=== PATIENT | male | born 1940 | race Caucasian/White ===

== ENCOUNTER → 2016-09-28 | Outpatient (REF) | payer MEDICARE ==
[~2016-09-28] MED LIST: ALDA25TA2; ASPI81TA85 PO; ATEN25TA PO; ATEN50TA2; CALCCHW12; CALCIUM 600+D PO; CALCPOW2 PO; COUM1TAB; DIGO0.12 PO; DIGO0.126; FLEXERIL; FLEXERIL PO; FURO40TA2 PO; KEFL500C7 PO; LASI40TA; LASI40TA PO; LIDO1PAD TD; LISI10TA4 PO; LOVA10TA; LOVA10TA PO; METF500T PO; MULTCAP PO; OXYC1TAB23 PO; PEPC10CH PO; PERC5TAB8; PREG50CA PO; PRIN10TA; SERT50TA PO; THERGRAN; VITA500T; VITAMIN B12 PO; ZOLO50TA
== END ==
LOC: M SFHCCAPE 10:25
PROVIDERS: ATTEND Physician Assistant
DX: E11.8 Type 2 diabetes mellitus with unspecified complications (principal); I10 Essential (primary) hypertension

== ENCOUNTER → 2016-10-05 | Outpatient (REF) | payer MEDICARE ==
[2016-10-05 17:41] LABS: ALBUMIN 3.3 GM/DL (3.2-5.2); ALBUMIN/GLOBULIN RATIO 0.94 (1.00-1.93); BILIRUBIN,TOTAL 0.5 MG/DL (0.2-1.0); CALCIUM LEVEL 8.8 MG/DL (8.8-10.2); CREATININE FOR GFR 1.5 MG/DL (0.70-1.30); GLOMERULAR FILTRATION RATE 48.4 (>42); POTASSIUM SERUM 4.7 MEQ/L (3.5-5.1); TOTAL PROTEIN 6.8 GM/DL (6.4-8.2)
== END ==
LOC: M SFHCCAPE 09:32
PROVIDERS: ATTEND Physician Assistant
DX: E87.5 Hyperkalemia (principal)

== ENCOUNTER 2016-11-07 10:03 | Emergency (ER) | payer MEDICARE ==
[~2016-11-07] VITALS: Ht 167.6 cm; Wt 76.2 kg
[2016-11-07] MEDS ORDERED: LEVE1INJ5 SQ (10:20)
[2016-11-07] MEDS ORDERED: GABA-283 PO (10:20)
[2016-11-07] MEDS ORDERED: ACETAMINOPHEN TAB 650MG DOSE (2X325MG) PO ONE (11:45)
--- NOTE | 2016-11-07 12:35 | ED PDOC ---
Post-Departure Follow-Up AFTER ALL RADIOLOGY RESULTS WERE OBTAINED, SPOKE AT LENGTH WITH PT, AND GRANDDAUGHTER REGARDING DISCHARGE VS ADMISSION. ADVISED EVEN IF ALL STUDIES WERE NEGATIVE, COULD TRY TO ADMIT FOR DIFFICULTY AMBULATING AND HIP PAIN BUT MAY BE SOCIAL ADMIT. FAMILY ASSURED PT DOES NOT AMBULATE MUCH AT HOME, ONLY TO TRANSFER TO WHEEL CHAIR AND BACK. ADVISED WILL LOOK AFTER PT AND RETURN IF ANY WORSENING SYMPTOMS OR ANOTHER FALL. PT SEES DR. Ware FOR CHRONIC RIGHT HIP WOUND AND ADVISED TO CALL THAT OFFICE WEDNESDAY TO SCHEDULE F/U APPT. FAMILY AND PT ALL IN AGREEMENT OF TX PLAN AT THIS TIME. FRANCISCA HERNANDEZ PA-C Nov 07, 2016 12:35
[2016-11-07 12:37] VITALS: BP 146/78
--- NOTE | 2016-11-07 15:11 | REP ---
RIGHT HIP/PELVIS, THREE VIEWS: HISTORY: Pain. The patient is status post right total hip replacement. There is no acute fracture or dislocation. A lucent defect is present in the iliac bone and acetabulum. This appears unchanged from a prior CT pelvis. IMPRESSION: The patient is status post right total hip replacement. There is no acute fracture or dislocation. Signed by Tan Madsen MD 11/07/2016 02:36 P
--- NOTE | 2016-11-07 15:11 | REP ---
RIGHT FEMUR, TWO VIEWS: HISTORY: Hip pain. The proximal femur is not visualized in the present radiographs. There is no acute fracture or dislocation. The joint space is normal in appearance. IMPRESSION: There is no acute fracture or dislocation. Signed by Tan Madsen MD 11/07/2016 03:03 P
--- NOTE | 2016-11-07 15:11 | REP ---
CT PELVIS WITHOUT CONTRAST: HISTORY: Right hip pain. The urinary bladder is normal in appearance. The prostate gland is enlarged. Diverticula are present in the sigmoid colon. The patient is status post right total hip replacement. Extensive beam-hardening artifact is present. There is no definite fracture or dislocation. A lucent defect is present in the left iliac bone including the acetabulum. This appears changed compared to a previous CT examination. Degenerative change is present in the left hip. Degenerative change is present in the lumbar spine. There is grade 1 spondylolisthesis of L4 on L5. IMPRESSION: Limited examination demonstrating no definite fracture or dislocation. The patient is status post right total hip replacement. Signed by Tan Madsen MD 11/07/2016 03:03 P
== END 2016-11-07 12:39 | disposition home or self-care (01) ==
LOC: M ED 10:38
DX: M25.551 Pain in right hip (principal); W05.0XXA Fall from non-moving wheelchair, initial encounter; Y92.012 Bathroom of single-family (private) house as the place of occurrence of the external cause; Y93.89 Activity, other specified; Y99.8 Other external cause status; E11.9 Type 2 diabetes mellitus without complications; I25.2 Old myocardial infarction; G89.29 Other chronic pain; F32.9 Major depressive disorder, single episode, unspecified; M48.00 Spinal stenosis, site unspecified; Z95.0 Presence of cardiac pacemaker; Z96.641 Presence of right artificial hip joint; Z79.4 Long term (current) use of insulin; Z79.82 Long term (current) use of aspirin; Z79.899 Other long term (current) drug therapy; Z88.6 Allergy status to analgesic agent; Z88.8 Allergy status to other drugs, medicaments and biological substances; Z91.09 Other allergy status, other than to drugs and biological substances

== ENCOUNTER 2017-02-10 16:00 | Emergency (ER) | payer MEDICARE ==
[~2017-02-10] VITALS: Ht 165.1 cm; Wt 75.0 kg
[~2017-02-10 16:00] MED LIST changes: +GABA-283 PO; +KEFL500C17 PO; -KEFL500C7 PO; +LEVE1INJ5 SQ; -METF500T PO; +METF500T13 PO
[2017-02-10 17:28] LABS: BASO # 0.1 K/mm3 (0.0-0.2); BASO % 0.7 % (0.0-1.0); EOS # 0.4 K/mm3 (0.0-0.50); EOS % 2.7 % (0.0-3.0); LARGE UNSTAINED CELL # 0.2 K/mm3 (0.0-0.4); LARGE UNSTAINED CELL % 1.6 % (0.0-4.0); LYMPH # 2.8 K/mm3 (1.5-4.5); LYMPH % 19.1 % (24.0-44.0); MEAN CORPUSCULAR HEMOGLOBIN 30.4 pg (27.0-33.0); MEAN CORPUSCULAR HGB CONC 33.7 g/dl (32.0-36.5); MEAN CORPUSCULAR VOLUME 90.3 fl (80.0-96.0); MONO # 1.1 K/mm3 (0.0-0.8); MONO % 7.9 % (0.0-5.0); NEUTROPHILS # 9.4 K/mm3 (1.8-7.7); NEUTROPHILS % 68.1 % (36.0-66.0); PLATELET COUNT, AUTOMATED 333 k/mm3 (150-450); RED CELL DISTRIBUTION WIDTH 13.7 % (11.5-14.5); WHITE BLOOD COUNT 13.8 K/mm3 (4.0-10.0)
[2017-02-10 17:59] LABS: CALCIUM LEVEL 8.7 MG/DL (8.8-10.2); CREATININE FOR GFR 1.49 MG/DL (0.70-1.30); GLOMERULAR FILTRATION RATE 48.8 (>42); POTASSIUM SERUM 4.8 MEQ/L (3.5-5.1)
--- NOTE | 2017-02-10 18:06 | REP ---
Right hip two views: Comparison is 11/07/2016. There is a comparison CT of the pelvis dated 11/07/2016. There is a total hip arthroplasty with the components tightly applied and in satisfactory positions alignment. There is lucency in the acetabulum adjacent to the acetabular cup extending into the supra-acetabular iliac wing, similar to the comparison study. This could be a large cyst or lytic lesion or postsurgical change . However, the findings are unchanged compared to a prior CT of 04/24/2008. Signed by Davi Mckee MD 02/10/2017 05:58 P
[2017-02-10 18:27] VITALS: BP 133/68
== END 2017-02-10 18:30 | disposition home or self-care (01) ==
LOC: M ED 16:00
DX: S71.101A Unspecified open wound, right thigh, initial encounter (principal); X58.XXXA Exposure to other specified factors, initial encounter; Y92.9 Unspecified place or not applicable; Y93.9 Activity, unspecified; Y99.8 Other external cause status; E11.22 Type 2 diabetes mellitus with diabetic chronic kidney disease; I12.9 Hypertensive chronic kidney disease with stage 1 through stage 4 chronic kidney disease, or unspecified chronic kidney disease; I25.10 Atherosclerotic heart disease of native coronary artery without angina pectoris; I25.2 Old myocardial infarction; N28.9 Disorder of kidney and ureter, unspecified; M48.00 Spinal stenosis, site unspecified; Z95.0 Presence of cardiac pacemaker; Z79.4 Long term (current) use of insulin; Z79.82 Long term (current) use of aspirin; Z79.899 Other long term (current) drug therapy; Z88.6 Allergy status to analgesic agent; Z88.8 Allergy status to other drugs, medicaments and biological substances; Z91.018 Allergy to other foods; Z91.09 Other allergy status, other than to drugs and biological substances

== ENCOUNTER → 2017-02-15 | Outpatient (REF) | payer MEDICARE ==
[~2017-02-15] MED LIST changes: +ASPI81TAEC PO; +CALCTAB68 PO; +CYCL10TA PO; +DOXY100T2 PO; +GABA-282 PO; +SERT-138 PO
[2017-02-15 19:34] LABS: BASO # 0.1 K/mm3 (0.0-0.2); BASO % 0.6 % (0.0-1.0); EOS # 0.2 K/mm3 (0.0-0.50); LARGE UNSTAINED CELL # 0.1 K/mm3 (0.0-0.4); LARGE UNSTAINED CELL % 0.7 % (0.0-4.0); LYMPH # 1.9 K/mm3 (1.5-4.5); LYMPH % 15.4 % (24.0-44.0); MEAN CORPUSCULAR HEMOGLOBIN 30.2 pg (27.0-33.0); MEAN CORPUSCULAR HGB CONC 32.4 g/dl (32.0-36.5); MEAN CORPUSCULAR VOLUME 93.3 fl (80.0-96.0); MONO # 0.9 K/mm3 (0.0-0.8); MONO % 7.4 % (0.0-5.0); NEUTROPHILS # 8.6 K/mm3 (1.8-7.7); NEUTROPHILS % 73.9 % (36.0-66.0); PLATELET COUNT, AUTOMATED 376 k/mm3 (150-450); RED CELL DISTRIBUTION WIDTH 13.7 % (11.5-14.5); WHITE BLOOD COUNT 11.6 K/mm3 (4.0-10.0)
[2017-02-15 21:39] LABS: ERYTHROCYTE SEDIMENTATION RATE 124 mm/hr (0-20)
== END ==
LOC: M LABDRAW1 17:38
PROVIDERS: ATTEND Physician Assistant
DX: Z47.1 Aftercare following joint replacement surgery (principal)

== ENCOUNTER → 2017-02-23 | Outpatient (REF) | payer MEDICARE | LOC: M SFHCPLAZ 13:13 | PROVIDERS: ATTEND Internal Medicine Infectious Disease | DX: T84.50XA Infection and inflammatory reaction due to unspecified internal joint prosthesis, initial encounter (principal); F32.9 Major depressive disorder, single episode, unspecified; G62.9 Polyneuropathy, unspecified; E11.65 Type 2 diabetes mellitus with hyperglycemia; Z79.82 Long term (current) use of aspirin; Z79.4 Long term (current) use of insulin; Z79.899 Other long term (current) drug therapy; Z95.0 Presence of cardiac pacemaker ==

== ENCOUNTER 2017-02-25 15:35 | Inpatient (IN) | payer MEDICARE ==
[~2017-02-25] VITALS: Ht 175.3 cm; Wt 77.3 kg
[~2017-02-25 15:35] MED LIST changes: -ASPI81TAEC PO; -CALCTAB68 PO; -CYCL10TA PO; -DOXY100T2 PO; -GABA-282 PO; -SERT-138 PO
[2017-02-25] MEDS ORDERED: VANCOMYCIN HCL 1,000 MG, VIAL MATE ADAPTER 1 EACH in D5W 250 ML IV ONE (17:30)
[2017-02-25] MEDS ORDERED: cefTRIAXone SOD 2 GM in D5W MINI-BAG PLUS 50 ML IV ONE (17:30)
[2017-02-25] MEDS ORDERED: ONDANSETRON 4MG/2ML VIAL (J2405) IV ONE (17:45)
[2017-02-25] MEDS ORDERED: MORPHINE 4 MG/ML 1ML SYRINGE IV ONE (17:45)
[2017-02-25 18:28] LABS: BASO # 0.1 K/mm3 (0.0-0.2); BASO % 0.5 % (0.0-1.0); EOS # 0.4 K/mm3 (0.0-0.50); EOS % 3.1 % (0.0-3.0); LARGE UNSTAINED CELL # 0.2 K/mm3 (0.0-0.4); LARGE UNSTAINED CELL % 1.2 % (0.0-4.0); LYMPH # 2.5 K/mm3 (1.5-4.5); LYMPH % 17.3 % (24.0-44.0); MEAN CORPUSCULAR HEMOGLOBIN 30.2 pg (27.0-33.0); MEAN CORPUSCULAR HGB CONC 33.1 g/dl (32.0-36.5); MEAN CORPUSCULAR VOLUME 91.2 fl (80.0-96.0); MONO # 0.8 K/mm3 (0.0-0.8); MONO % 6.1 % (0.0-5.0); NEUTROPHILS # 9.7 K/mm3 (1.8-7.7); NEUTROPHILS % 71.8 % (36.0-66.0); PLATELET COUNT, AUTOMATED 395 k/mm3 (150-450); RED CELL DISTRIBUTION WIDTH 13.3 % (11.5-14.5); WHITE BLOOD COUNT 13.6 K/mm3 (4.0-10.0)
[2017-02-25 18:54] LABS: CALCIUM LEVEL 8.2 MG/DL (8.8-10.2); CREATININE FOR GFR 1.39 MG/DL (0.70-1.30); DIGOXIN LEVEL 2.1 NG/ML (0.5-2.0); GLOMERULAR FILTRATION RATE 52.9 (>42)
[2017-02-25 19:02] LABS: POTASSIUM SERUM 5.3 MEQ/L (3.5-5.1)
[2017-02-25] MEDS ORDERED: ASPI81TAEC PO (20:46)
[2017-02-25] MEDS ORDERED: SERT-138 PO (20:46)
[2017-02-25] MEDS ORDERED: CALCTAB68 PO (20:46)
[2017-02-25] MEDS ORDERED: CYCL10TA PO (20:46)
[2017-02-25] MEDS ORDERED: GABA-282 PO (20:46)
[2017-02-25] MEDS ORDERED: CYCLOBENZAPRINE 10 MG TAB PO PRN (21:45)
[2017-02-25] MEDS ORDERED: ACETAMINOPHEN TAB 650MG DOSE (2X325MG) PO PRN (21:45)
[2017-02-25] MEDS: PERCOCET 5MG/325MG TAB PO PRN (22:08)
[2017-02-25 22:25] VITALS: BP 128/60
--- NOTE | 2017-02-25 22:32 | PHACANCOPD ---
PHARMACY VANCOMYCIN DOSING Pt Demographics Demographics Patient Age:76 , Weight:77.270 , Gender: male Adjusted Body Weight Date: 02/25/17, Adjusted Body Weight: Kg Events Past 24 Hours Events Past 24 Hours: NO: Dialysis, Diuretic Therapy, Change in CrCl, Fever, Elevation in WBC, Pending Diagnostics, Pending Procedures, Other Vancomycin Vancomycin Target Ranges: 10-20 mcg/ml Vancomycin Load Y/N: No Load Dose Date Time Vancomycin Load Dose: Date: Time: Vancomycin Dose Date: 02/25/17. Current Vancomycin Dose: [1000MG Q12H] Intermittent Dosing?: No Labs Labs Item Value Date Time White Blood Count 13.6 K/mm3 H 02/25/171758 Creatinine 1.39 MG/DL H 02/25/171758 Blood Urea Nitrogen 28 MG/DL H 02/25/171758 Vital Signs Label Value Date Time Patient Temperature 97.6 degrees F 02/25/172028 Temperature Source Oral 02/25/172028 Creatinine Clearance Date:02/25/17. Creatinine Clearance: [45]. Pending Labs trough 08-18 @2200 Assessment and Plan Maintaining Current Dose?: Yes Reason for dose change: No Dose Change Pharmacist Note Pharmacist Note Date: 02/25/17. Pharmacist note:Dosed at 1000mg q12h with a trough ordered for 08 -18 @2200. Will continue to monitor and make adjustments as needed. SASHA MOREAU PHARMACY Feb 25, 2017 22:32
[2017-02-25] MEDS: GABAPENTIN 300 MG CAP PO SCH (22:36)
[2017-02-25] MEDS: SIMVASTATIN 10 MG TAB PO SCH (22:36)
[2017-02-25] MEDS: DOCUSATE SODIUM 100 MG CAP PO SCH (22:36)
[2017-02-25] MEDS: VANCOMYCIN HCL 1,000 MG, VIAL MATE ADAPTER 1 EACH in D5W 250 ML IV SCH (22:36)
[2017-02-25] MEDS: ATENOLOL 25 MG TAB PO SCH (22:39)
[2017-02-25] MEDS ORDERED: GLUCOSE 4 GM CHEW TABLET PO PRN (22:45)
[2017-02-25] MEDS ORDERED: GLUCAGON FOR INJ 1 MG VIAL (J1610) SC PRN (22:45)
[2017-02-25] MEDS ORDERED: DEXTROSE 50% 50 ML SYRINGE IV PRN (22:45)
[2017-02-25] MEDS: LEVEMIR (INSULIN DETEMIR) 1 UNITS/0.01ML SC SCH (23:37)
[2017-02-26 06:00] VITALS: BP 113/58
[2017-02-26 06:49] LABS: BASO % 0.4 % (0.0-1.0); EOS # 0.4 K/mm3 (0.0-0.50); EOS % 3.5 % (0.0-3.0); LARGE UNSTAINED CELL # 0.1 K/mm3 (0.0-0.4); LARGE UNSTAINED CELL % 1.1 % (0.0-4.0); LYMPH % 18.2 % (24.0-44.0); MEAN CORPUSCULAR HEMOGLOBIN 30.8 pg (27.0-33.0); MEAN CORPUSCULAR HGB CONC 33.4 g/dl (32.0-36.5); MONO # 0.9 K/mm3 (0.0-0.8); NEUTROPHILS % 67.8 % (36.0-66.0); PLATELET COUNT, AUTOMATED 303 k/mm3 (150-450); RED CELL DISTRIBUTION WIDTH 13.4 % (11.5-14.5); WHITE BLOOD COUNT 10.4 K/mm3 (4.0-10.0)
[2017-02-26 07:19] LABS: ALBUMIN 2.2 GM/DL (3.2-5.2); ALBUMIN/GLOBULIN RATIO 0.61 (1.00-1.93); BILIRUBIN,TOTAL 0.3 MG/DL (0.2-1.0); CALCIUM LEVEL 8.4 MG/DL (8.8-10.2); CREATININE FOR GFR 1.33 MG/DL (0.70-1.30); GLOMERULAR FILTRATION RATE 55.7 (>42); POTASSIUM SERUM 4.8 MEQ/L (3.5-5.1); TOTAL PROTEIN 5.8 GM/DL (6.4-8.2)
[2017-02-26] MEDS: HumaLOG INSULIN (NovoLOG) PER UNIT SC SCH ×3 (07:30→17:18)
[2017-02-26] MEDS: ASPIRIN 81 MG ENTERIC TAB PO SCH (08:52)
[2017-02-26] MEDS: LIDOCAINE 5% (LIDODERM) PATCH TD SCH (08:52)
[2017-02-26] MEDS: DOCUSATE SODIUM 100 MG CAP PO SCH ×2 (08:52→22:36)
[2017-02-26] MEDS: ENOXAPARIN 30 MG/0.3 ML SYR (J1650) SC SCH (08:52)
[2017-02-26] MEDS: SERTRALINE 100 MG TAB PO SCH (08:53)
[2017-02-26] MEDS: DIGOXIN 0.125 MG TAB PO SCH (08:53)
[2017-02-26] MEDS: FUROSEMIDE 40 MG TAB PO SCH (08:53)
[2017-02-26] MEDS: GABAPENTIN 300 MG CAP PO SCH ×2 (08:53→22:36)
[2017-02-26] MEDS: ATENOLOL 25 MG TAB PO SCH ×2 (08:53→22:37)
--- NOTE | 2017-02-26 09:35 | IPNPDOC ---
Subjective Date Seen The patient was seen on 02/26/17. Subjective Chief Complaint/HPI The patient is a 76-year-old male admitted with a reason for visit of Wound Infection. Constitutional: Denies: Chills, Night Sweats ENT: Denies: Head Aches Skin: Reports: Other (drainage from open wound right thigh ) Pulmonary: Denies: Dyspnea, Cough Cardiovascular: Denies: Chest Pain, Palpitations Gastrointestinal: Denies: Nausea, Vomiting Genitourinary: Denies: Dysuria Hematologic: Denies: Bruising, Bleeding Excessively Objective Physical Examination General Exam: Positive: Alert, Cooperative Eye Exam: Positive: PERRLA, EOMI ENT Exam: Positive: Atraumatic Chest Exam: Positive: Clear to auscultation, Normal air movement Heart Exam: Positive: Rate Normal, Regular Rhythm, Negative: Murmurs Abdomen Exam: Positive: Normal bowel sounds, Soft, Negative: Tenderness Psych Exam: Positive: Mental status NL, Other (dysarthria noted.) Assessment /Plan Problems (1) Open wound of right hip Status: Chronic Problem Specific Plan: Consult Specialist (Dr. Tesfaye has been consulted and saw patient in clinic recently.) Problem Text: This wound has been present for 20+years, following right total hip. Cultured in office, growing Neisseria cinerea. Currently on Ceftriaxone and Vancomycin. Does not appear that he has had Consult with [facility] as outpatient (Dr. Ross). May benefit from inpatient consult with Surgery since inpatient wound/ostomy clinical nurse specialist (other than PT) is not available. PT wound/ostomy clinical nurse specialist has been consulted. (2) Diabetes mellitus Status: Chronic Response to Treatment: Stable (3) Cerebellar ataxia Status: Chronic Response to Treatment: Stable Problem Specific Plan: Monitor Clinically Plan/VTE VTE Prophylaxis Ordered?: Yes Plan Therapy: PT, Wound Consult (PT wound consult.) Anticipated Discharge: Home VS, I&O, 24H, Fishbone Vital Signs/I&O Vital Signs Date Time Temp Pulse Resp B/P (MAP) Pulse Ox O2 Delivery O2 Flow Rate FiO2 02/26/17 08:53 60 02/26/17 08:53 113/58 02/26/17 06:00 97.2 18 99 Room Air I&O- Last 24 Hours up to 6 AM 02/26/17 06:00 Intake Total 920 ml Balance 920 ml Laboratory Data 24H LABS Laboratory Tests 2 02/25/17 17:59: White Blood Count 13.6H, Red Blood Count 4.32, Hemoglobin 13.0L, Hematocrit 39.4L, Mean Corpuscular Volume 91.2, Mean Corpuscular Hemoglobin 30.2, Mean Corpuscular Hemoglobin Concent 33.1, Red Cell Distribution Width 13.3, Platelet Count 395, Neutrophils (%) (Auto) 71.8H, Lymphocytes (%) (Auto) 17.3L, Monocytes (%) (Auto) 6.1H, Eosinophils (%) (Auto) 3.1H, Basophils (%) (Auto) 0.5 , Neutrophils # (Auto) 9.7H, Lymphocytes # (Auto) 2.5, Monocytes # (Auto) 0.8, Eosinophils # (Auto) 0.4, Basophils # (Auto) 0.1, Large Unclassified Cells % 1.2 , Large Unclassified Cells # 0.2, Anion Gap 7L, Glomerular Filtration Rate 52.9 , Blood Urea Nitrogen 28H, Creatinine 1.39H, Sodium Level 140, Potassium Level 5.3H, Chloride Level 103, Carbon Dioxide Level 30, Calcium Level 8.2L, Digoxin Level 2.1H 02/26/17 06:19: White Blood Count 10.4H, Red Blood Count 3.73L, Hemoglobin 11.5L, Hematocrit 34.3L, Mean Corpuscular Volume 92.0, Mean Corpuscular Hemoglobin 30.8, Mean Corpuscular Hemoglobin Concent 33.4, Red Cell Distribution Width 13.4, Platelet Count 303, Neutrophils (%) (Auto) 67.8H, Lymphocytes (%) (Auto) 18.2L, Monocytes (%) (Auto) 9.0H, Eosinophils (%) (Auto) 3.5H, Basophils (%) (Auto) 0.4 , Neutrophils # (Auto) 7.0, Lymphocytes # (Auto) 2.0, Monocytes # (Auto) 0.9H, Eosinophils # (Auto) 0.4, Basophils # (Auto) 0.0, Large Unclassified Cells % 1.1 , Large Unclassified Cells # 0.1, Anion Gap 12, Glomerular Filtration Rate 55.7 , Blood Urea Nitrogen 28H, Creatinine 1.33H, Sodium Level 140, Potassium Level 4.8, Chloride Level 107, Carbon Dioxide Level 21, Calcium Level 8.4L, Aspartate Amino Transf (AST/SGOT) 32, Alanine Aminotransferase (ALT/SGPT) 20, Alkaline Phosphatase 139H, Total Bilirubin 0.3, Total Protein 5.8L, Albumin 2.2L, Albumin /Globulin Ratio 0.61L CBC/BMP Laboratory Tests 02/25/17 17:59 Red Blood Count 4.32, Mean Corpuscular Volume 91.2, Mean Corpuscular Hemoglobin 30.2, Mean Corpuscular Hemoglobin Concent 33.1, Red Cell Distribution Width 13.3 , Neutrophils (%) (Auto) 71.8 H, Lymphocytes (%) (Auto) 17.3 L, Monocytes (%) ( Auto) 6.1 H, Eosinophils (%) (Auto) 3.1 H, Basophils (%) (Auto) 0.5, Neutrophils # (Auto) 9.7 H, Lymphocytes # (Auto) 2.5, Monocytes # (Auto) 0.8, Eosinophils # (Auto) 0.4, Basophils # (Auto) 0.1, Calcium Level 8.2 L 02/26/17 06:19 Red Blood Count 3.73 L, Mean Corpuscular Volume 92.0, Mean Corpuscular Hemoglobin 30.8, Mean Corpuscular Hemoglobin Concent 33.4, Red Cell Distribution Width 13.4, Neutrophils (%) (Auto) 67.8 H, Lymphocytes (%) (Auto) 18.2 L, Monocytes (%) (Auto) 9.0 H, Eosinophils (%) (Auto) 3.5 H, Basophils (%) (Auto) 0.4, Neutrophils # (Auto) 7.0, Lymphocytes # (Auto) 2.0, Monocytes # ( Auto) 0.9 H, Eosinophils # (Auto) 0.4, Basophils # (Auto) 0.0, Calcium Level 8.4 L, Aspartate Amino Transf (AST/SGOT) 32, Alanine Aminotransferase (ALT/SGPT ) 20, Alkaline Phosphatase 139 H, Total Bilirubin 0.3, Total Protein 5.8 L, Albumin 2.2 L Lavon Ulloa MD Feb 26, 2017 09:35
[2017-02-26] MEDS: VANCOMYCIN HCL 1,000 MG, VIAL MATE ADAPTER 1 EACH in D5W 250 ML IV SCH ×2 (12:30→22:38)
--- NOTE | 2017-02-26 12:34 | HPE ---
DATE OF ADMISSION: 02/25/2017 Most of the history is obtained from the patient's , who is a good historian, and the patient cannot provide a good history secondary to an advanced cerebellar condition. PRIMARY CARE PROVIDER: Dr. Nneka Huang. CHIEF COMPLAINT: Severe pain. HISTORY OF PRESENT ILLNESS: This is a 76-year-old male who apparently had a total hip replacement in 1992 and since then has had a chronic wound in that area for which he is followed by the product delivery specialist as well and he has been caring for this at home specifically over the following many years. The patient is on chronic Keflex therapy and recently has had increasing pain in that leg. The patient was seen by Dr. Tesfaye of infectious disease and had biopsy done. The patient denies any fevers or chills, denies any pus coming from the wound. The wound has not become more swollen abd has been more painful; however, as per the , the patient today was unable to eat, in severe pain and uncomfortable and not his usual self. She called Dr. Tesfaye, who instructed her to come to the hospital for further evaluation. The patient, at this time, does not complain of severe pain in the leg. States that it feels better since arrival in the emergency room. Has normal range of motion. PAST MEDICAL HISTORY: Significant for: 1. Coronary artery disease status post myocardial infarction (NC) in the past times two. 2. Insulin-dependent diabetes mellitus. 3. Depression. 4. Congestive heart failure. 5. Cerebellar ataxia. 6. Peripheral neuropathy. 7. Hypertension. 8. Atrial fibrillation now with a pacemaker. 9. Spinal stenosis. CURRENT MEDICATIONS: Include: - Percocet 5/325 twice daily as needed - Keflex 500 mg four times daily - standing Levemir 34 units nightly - aspirin 81 mg daily - atenolol 25 mg twice daily - Flexeril 10 mg three times daily as needed for muscle spasm - digoxin 0.125 mg daily - furosemide 40 mg daily - gabapentin 300 mg twice daily - lidocaine patch two patches to the back daily - lovastatin 10 mg nightly - sertraline 50 mg daily ALLERGIES: The patient has multiple allergies including ASPIRIN, CAFFEINE, NIACIN, NIFEDIPINE, ORPHENADRINE, SALICYLATES, TAPE, and THIOXANTHENE. SOCIAL HISTORY: Denies any tobacco, ethanol or drug use. PAST SURGICAL HISTORY: Includes: 1. A pacemaker placement. 2. Hip surgery as above in 1992. 3. Carpal tunnel repair. FAMILY HISTORY: Significant for cerebellar ataxia in his father as well. REVIEW OF SYSTEMS: Other than the above mentioned, denies any other constitutional symptoms or any cardiac, pulmonary, digestive, endocrine, hematological, psychiatric, neurological, musculoskeletal, or dermatological disease. PHYSICAL EXAMINATION: Pulse is 73 with a blood pressure of 111/66, breathing at 18, afebrile. In the emergency room, he was found to be febrile later on to 100.4. GENERAL APPEARANCE: 76-year-old white male with slurred speech currently lying in bed in no apparent distress. PSYCHIATRIC EXAM: Alert and oriented times three with normal affect, pleasant. SKIN EXAM: Intact, warm. The patient does have right hip wound all the way down the right hip, which appears erythematous. There is no pus emanating from the wound. It is slightly tender to exam and is deep. EYE EXAM: Pupils are equally round and reactive to light without icterus. OROPHARYNGEAL EXAM: No oropharyngeal erythema, dentition in poor condition. NECK EXAM: No thyromegaly, trachea midline, neck is supple. LYMPHATICS EXAM: No cervical or axillary lymphadenopathy. CARDIAC EXAM: Regular rate and rhythm. Pacemaker is in place without erythema. No rubs, murmurs or gallops noted. No edema. RESPIRATORY EXAM: Clear to auscultation bilaterally with good effort. ABDOMINAL EXAM: Nondistended, nontender. No masses palpated. PERIPHERAL EXAM: The wound is noted as above. The patient has bilateral leg braces as well. LABORATORIES: The patient's white cell count is 13,000, hematocrit of 39, platelet count of 395 with an MCV of 91, RDW of 13. He has a slight left shift with 72% neutrophils. Chemistry shows a sodium of 140, potassium of 5.3, BUN and creatinine of 28/1.39, which appears old, bicarbonate of 30, and a calcium of 8.2. Digoxin level today is 2.1. The patient does have a hip x-ray which was done on the 10 of February. At the time showed a lucency in the acetabulum adjacent to the acetabular cup extending into the supra acetabular iliac wing, similar to the comparison study, which could be a large cyst or lytic lesion or postsurgical change. These findings are not changed compared to April of 2008. ASSESSMENT: This is a 76-year-old male now presenting with possible wound infection. The patient does have a fever in the emergency room. He is complaining of severe pain. The patient will be admitted for further care at this time. 1. Probable wound infection: Will admit the patient to the medical/surgical unit at this time, wound culture is currently pending and has been done in the clinic by Dr. Tesfaye, blood cultures should be done in the emergency room as well, the patient will be started at this time on Rocephin and vancomycin, wound consult will also be obtained at this time, consider orthopedics evaluation. 2. Severe pain: Will put the patient on Percocet every 6 hours as needed for pain and monitor for need for greater pain control. 3. Insulin-dependent diabetes mellitus: At this time, will continue the patient's Lantus insulin and put him on sliding scale with close monitoring of his fingerstick glucose. 4. Congestive heart failure: The patient will remain on Lasix and the rest of his medications will also be continued including his beta weston. 5. Cerebellar ataxia: The patient's cerebellar ataxia at this time is fairly functional. Will obtain physical therapy and occupational therapy while in the hospital. 6. Atrial fibrillation: At this time, the patient's rate is well controlled. He continues on aspirin only. For deep venous thrombosis (DVT) prophylaxis, the patient currently will receive Lovenox and diet will be a carbohydrate controlled diet.
[2017-02-26] MEDS ORDERED: DIAPER RELIEF PASTE (DESITIN) 60GM TOP SCH (13:00)
[2017-02-26] MEDS: cefTRIAXone SOD 2 GM in D5W MINI-BAG PLUS 50 ML IV SCH (17:17)
[2017-02-26] MEDS: **NOTE PATIENT COMMENT** MISC XX SCH (21:00)
[2017-02-26 22:00] VITALS: BP 131/65
[2017-02-26] MEDS: SIMVASTATIN 10 MG TAB PO SCH (22:36)
[2017-02-26] MEDS: LEVEMIR (INSULIN DETEMIR) 1 UNITS/0.01ML SC SCH (22:38)
[2017-02-26] MEDS: PERCOCET 5MG/325MG TAB PO PRN (22:40)
--- NOTE | 2017-02-26 23:37 | PHACANCOPD ---
PHARMACY VANCOMYCIN DOSING Pt Demographics Demographics Patient Age:76 , Weight:77.270 , Gender: male Adjusted Body Weight Date: 02/25/17, Adjusted Body Weight: Kg Events Past 24 Hours Events Past 24 Hours: YES: Elevation in WBC, Pending Diagnostics Vancomycin Vancomycin indication: wound/joint infection Vancomycin Target Ranges: 10-20 mcg/ml Vancomycin Load Y/N: No Load Dose Date Time Vancomycin Load Dose: Date: Time: Vancomycin Dose Date: 02/25/17. Current Vancomycin Dose: [1000MG Q12H] Intermittent Dosing?: No Labs Micro Microbiology 02/26/17 Wound Culture, Received Pending Creatinine Clearance Date:02/25/17. Creatinine Clearance: [45]. Pending Labs Repeat Vancomycin trough scheduled 03/01/17 @1700 Assessment and Plan Maintaining Current Dose?: No Reason for dose change: Trough too high Pharmacist Note Pharmacist Note 02/26/17: Day #2 empiric Rocephin/vancomycin therapy for the treatment of a chronic right hip wound infection as a result of a hip replacement done in 1992. 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. WBC is still elevated, but is trending down. Wound culture is still pending. The scheduled trough today resulted at 27.7mcg/ml. We will hold tonight's dose and resume the vancomycin at 1g IV Q18H, tomorrow, after a 24hr washout period. A follow-up vancomycin trough has been scheduled for 03/01/17 @1700, prior to the 4th dose of the new regimen. We will continue to monitor and make any further adjustments to this regimen as needed. Date: 02/25/17. Pharmacist note:Dosed at 1000mg q12h with a trough ordered for @2200. Will continue to monitor and make adjustments as needed. VIRGIE CRENSHAW PHARMACY Feb 26, 2017 23:36
[2017-02-27 06:00] VITALS: BP 145/67
[2017-02-27 07:28] LABS: CALCIUM LEVEL 8.7 MG/DL (8.8-10.2); CREATININE FOR GFR 1.5 MG/DL (0.70-1.30); GLOMERULAR FILTRATION RATE 48.4 (>42)
[2017-02-27] MEDS: HumaLOG INSULIN (NovoLOG) PER UNIT SC SCH ×3 (07:30→18:04)
[2017-02-27 07:42] LABS: POTASSIUM SERUM 5.2 MEQ/L (3.5-5.1)
[2017-02-27] MEDS: GABAPENTIN 300 MG CAP PO SCH ×2 (09:08→20:26)
[2017-02-27] MEDS: SERTRALINE 100 MG TAB PO SCH (09:08)
--- NOTE | 2017-02-27 09:08 | IPN ---
DATE: 02/27/2107 76-year-old male seen at bedside. No overnight issues reported. He is resting comfortably. No fevers, chills. No chest pain. No nausea, vomiting. No abdominal pain. OBJECTIVE: Temperature 97.8, pulse 60, respiratory rate 17, blood pressure is 145/76, SPO2 is 97% on room air. GENERAL: The patient appears to be in no acute distress. He is alert. HEENT: Unremarkable. LUNGS: Clear. HEART: Regular rate and rhythm. ABDOMEN: Soft. EXTREMITIES: No edema. No calf tenderness. The right lateral hip region does have an open wound that is being packed. No erythema around the border of the wound and no visible drainage. LABORATORY DATA: White count is 10.4, down from 13,000, hemoglobin is 11.5, platelets 303. Sodium 141, potassium is 5.2, chloride 104, bicarb 30, anion gap 7, BUN is 29, creatinine 1.50, glucose is 70. ASSESSMENT/PLAN: 1. Hyperkalemia. I did review his medications. I do not see anything in particular that should contribute to this. Will continue to encourage him to hydrate and repeat renal profile on him at noon. 2. Open wound of the right hip. Dr. Tesfaye has been involved with consultation. She has been seeing the patient in the clinic and appreciate her input regarding IV antibiotics. Regarding wound care, appreciate PT wound consults input. He does appear to be improving with his white count. Therefore, he will likely need to followup outpatient with a metallurgical specialist, such as Dr. Ross. 3. Leukocytosis improved. 4. Diabetes. Appears to be stable. Will continue with sliding scale coverage. 5. Hypertension. Will continue to follow. The patient is due for a dose of Lasix today. This may help out with his hyperkalemia. 6. Chronic back and leg pain. Continue with the Neurontin as well as lidocaine patch and as needed oxycodone. 7. Depression. Stable on Zoloft. 8. Hyperlipidemia. Continue on Zocor. 9. History of coronary artery disease. Continue on beta-weston and aspirin as well as statin therapy. 10. History of congestive heart failure. He appears to be compensated. Will continue to follow. 11. Prior history of atrial fibrillation with pacemaker. He does appear to be rate controlled. 12. Deep vein thrombosis (DVT) prophylaxis. Continue Lovenox. DISPOSITION: Anticipate the patient will be here through the weekend and will see about discharging him home, perhaps on Wednesday.
[2017-02-27] MEDS: DOCUSATE SODIUM 100 MG CAP PO SCH ×2 (09:09→20:26)
[2017-02-27] MEDS: ASPIRIN 81 MG ENTERIC TAB PO SCH (09:09)
[2017-02-27] MEDS: FUROSEMIDE 40 MG TAB PO SCH (09:09)
[2017-02-27] MEDS: DIGOXIN 0.125 MG TAB PO SCH (09:09)
[2017-02-27] MEDS: ATENOLOL 25 MG TAB PO SCH ×2 (09:10→20:26)
[2017-02-27] MEDS: LIDOCAINE 5% (LIDODERM) PATCH TD SCH (09:10)
[2017-02-27] MEDS: ENOXAPARIN 30 MG/0.3 ML SYR (J1650) SC SCH (09:11)
[2017-02-27] MEDS: VANCOMYCIN HCL 1,000 MG, VIAL MATE ADAPTER 1 EACH in D5W 250 ML IV SCH (12:08)
[2017-02-27 12:45] LABS: ALBUMIN 2.5 GM/DL (3.2-5.2); CREATININE FOR GFR 1.5 MG/DL (0.70-1.30); GLOMERULAR FILTRATION RATE 48.4 (>42); POTASSIUM SERUM 5.1 MEQ/L (3.5-5.1)
[2017-02-27 14:00] VITALS: BP 133/64
[2017-02-27] MEDS: cefTRIAXone SOD 2 GM in D5W MINI-BAG PLUS 50 ML IV SCH (18:04)
[2017-02-27] MEDS: PERCOCET 5MG/325MG TAB PO PRN (18:06)
[2017-02-27] MEDS: SIMVASTATIN 10 MG TAB PO SCH (20:26)
[2017-02-27] MEDS: **NOTE PATIENT COMMENT** MISC XX SCH (20:30)
[2017-02-27] MEDS: LEVEMIR (INSULIN DETEMIR) 1 UNITS/0.01ML SC SCH (20:30)
[2017-02-27 22:00] VITALS: BP 104/58
[2017-02-28 06:00] VITALS: BP 140/74
[2017-02-28] MEDS: VANCOMYCIN HCL 1,000 MG, VIAL MATE ADAPTER 1 EACH in D5W 250 ML IV SCH ×2 (06:14→23:57)
[2017-02-28 07:06] LABS: MEAN CORPUSCULAR HEMOGLOBIN 30.6 pg (27.0-33.0); MEAN CORPUSCULAR HGB CONC 33.3 g/dl (32.0-36.5); MEAN CORPUSCULAR VOLUME 91.8 fl (80.0-96.0); RED CELL DISTRIBUTION WIDTH 13.5 % (11.5-14.5); WHITE BLOOD COUNT 11.6 K/mm3 (4.0-10.0)
[2017-02-28 07:26] LABS: CALCIUM LEVEL 8.7 MG/DL (8.8-10.2); CREATININE FOR GFR 1.46 MG/DL (0.70-1.30)
[2017-02-28 07:29] LABS: POTASSIUM SERUM 5.3 MEQ/L (3.5-5.1)
[2017-02-28] MEDS: HumaLOG INSULIN (NovoLOG) PER UNIT SC SCH ×3 (07:30→18:40)
[2017-02-28] MEDS: LIDOCAINE 5% (LIDODERM) PATCH TD SCH (08:42)
[2017-02-28] MEDS: FUROSEMIDE 40 MG TAB PO SCH (08:43)
[2017-02-28] MEDS: DOCUSATE SODIUM 100 MG CAP PO SCH ×2 (08:43→20:19)
[2017-02-28] MEDS: ENOXAPARIN 30 MG/0.3 ML SYR (J1650) SC SCH (08:43)
[2017-02-28] MEDS: SERTRALINE 100 MG TAB PO SCH (08:45)
[2017-02-28] MEDS: ASPIRIN 81 MG ENTERIC TAB PO SCH (08:45)
[2017-02-28] MEDS: GABAPENTIN 300 MG CAP PO SCH ×2 (08:45→20:19)
[2017-02-28] MEDS: DIGOXIN 0.125 MG TAB PO SCH (08:45)
[2017-02-28] MEDS: PERCOCET 5MG/325MG TAB PO PRN ×2 (08:51→20:20)
[2017-02-28] MEDS: ATENOLOL 25 MG TAB PO SCH ×2 (08:51→20:19)
--- NOTE | 2017-02-28 09:43 | IPN ---
DATE: 02/28/2017 76-year-old gentleman seen at bedside, resting comfortably. No overnight issues. No chest pain, shortness of breath. No nausea, vomiting. OBJECTIVE Temperature 97.5, pulse 60, respiratory rate 18, blood pressure 140/74, SPO2 is 97% on room air. GENERAL: The patient appears to be in no acute distress, alert and oriented, pleasant. HEENT: Unremarkable. LUNGS: Clear. HEART: Regular rhythm. ABDOMEN: Soft. EXTREMITIES: No edema. No calf tenderness. The right hip does have wound packing in place. No drainage. No erythema. LABORATORY DATA: White count is 11.6, hemoglobin 11.5 and platelets are 353,000. Sodium 142, potassium 5.3, chloride 105, bicarb 31, anion gap 6, BUN is 31, creatinine 1.46, glucose is 93. ASSESSMENT/PLAN: 1. Hyperkalemia. Medications again have been reviewed. He is not on any nephrotoxic drugs or any medications that should cause his potassium to be elevated. Apparently the lab states that the blood is not hemolyzed. This is mildly elevated. Will continue to follow as we have been. 2. Open wound of the right hip, which is chronic in nature. Appreciate Dr. Tesfaye's involvement. Will follow her consultative recommendations. Continue IV antibiotics and physical therapy (PT), wound consult. He will likely need outpatient followup with Dr. Ross. 3. Leukocytosis. Has stabilized, slightly elevated, but no signs of fever or sepsis. 4. Diabetes. Continue fingersticks before meals and at bedtime. Sliding scale coverage. Consistent carbohydrate diet. 5. Hypertension. Again he is due for a dose of Lasix. This likely will help out with the hyperkalemia. 6. Chronic back pain, leg pain. Continue on Neurontin, lidocaine patch and oxycodone as needed. 7. Depression. Continue on Zoloft. 8. Hyperlipidemia. Continue statin. 9. History of coronary artery disease. Continue beta-weston, aspirin, and statin therapy. 10. Congestive heart failure. He appears to be compensated and this is chronic. 11. History of atrial fibrillation with pacemaker. He is rate controlled. Currently on aspirin and not anticoagulated, perhaps due to risk of fall. I will defer this to his outpatient primary care provider. 12. Deep vein thrombosis (DVT) prophylaxis with Lovenox. DISPOSITION: The patient will be followed through the weekend. Appreciate Dr. Tesfaye's as input again on Wednesday.
[2017-02-28] MEDS: cefTRIAXone SOD 2 GM in D5W MINI-BAG PLUS 50 ML IV SCH (18:55)
--- NOTE | 2017-02-28 20:04 | CR ---
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 HISTORY OF PRESENT ILLNESS: Mr. 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 The patient initially was seen by myself in 2011. He had right hip replacement done in 1992 resulting in dehiscence of the wound approximately a week later. He had been hospitalized initially with cultures positive for Pseudomonas and Staphylococcus epidermidis, was treated with intravenous (IV) antibiotics. The patient's wound never healed. He has had also multiple cultures later which grew methicillin-sensitive Staphylococcus aureus (MSSA) in 2000, 2001 and 2005, and the patient had remained on chronic suppressive therapy with cephalexin 500 mg twice a day. The patient has cerebellar ataxia and was having difficulty with transportation coming to doctor's appointment, so his asked not to be seen for followup and he was last seen in October of 2014. Dr. Gibson called my office last week asking him to be seen because he was having creasing pain with worsening drainage. He had been to the emergency room to be evaluated. I saw him in my office on 02/23/2017. The patient's stated that he was having so much hip pain that he was not able to move or sleep for the past three days. The discharge was yellowish-greenish. She changed it his dressing daily and that was not any different. He did not notice having any fever or chills. X-rays were done in the emergency room, which were not suggestive of any fracture. He had a wound culture done in my office and he was advised to increase his dose of Keflex to four times a day. She called me on the 02/25/2017 wanting to know the results of the culture but also frustrated because he could not sleep and was in excruciating pain. The patient states the pain is from the hip into the groin area and it feels like somebody is jabbing an ear of corn in his groin. PAST MEDICAL HISTORY: Significant for: 1. Diabetes with multiple complications. 2. Essential hypertension. 3. Congestive heart failure. 5. Cerebellar ataxia. 6. Spinal stenosis of the lumbar spine. 7. Hyperlipidemia. 8. Gout. 9. 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 10. Pacemaker. 11. Depression. PAST SURGICAL HISTORY: 1. Cataract extraction. 2. Pacemaker. 3. Right total hip replacement. 4. Left carpal tunnel release. 5. Pinched nerve in his elbow in 2014. MEDICATIONS: - Digoxin 0.125 mg daily. - Lasix 40 mg daily - atenolol 25 mg twice a day - calcium with vitamin D - Lidoderm patch - Keflex 500 mg twice a day as an outpatient. Currently he was started on: - vancomycin 1 gram every 12 hours - Rocephin 2 grams daily - Flexeril 10 mg by mouth three times a day as needed. - Zoloft 50 mg daily - gabapentin 300 mg twice a day - lovastatin 10 mg daily - aspirin 81 mg daily - Levemir 32 units in the evening - Percocet one tablet by mouth twice a day - the patient before this week used to take only one tablet at bedtime; this past week the patient has been taking two tablets of Percocet plus Tylenol in between, with no improvement of his symptoms. SOCIAL HISTORY: He has a former smoker. He quit more than 10 years ago. He lives with his . He is retired. REVIEW OF SYSTEMS: He has severe pain in this right hip radiating to his scrotum, back pain. Muscle weakness from cerebellar ataxia. He uses a walker and is able to transfer from bed to chair. He denies any abdominal pain, nausea, vomiting, weight change. No cough or shortness of breath. On physical examination, temperature is 97.2, maximum temperature (T max) was 100.4, pulse 60, respirations 18, blood pressure 113/58, oxygen saturation 99% on room air. HEART: Normal S1, S2. No murmurs. LUNGS: Clear. ABDOMEN: Soft, nontender. EXTREMITIES: +1 pitting edema bilaterally. RIGHT HIP: A very large open area measuring about 20 cm, with large amount of purulent drainage, some maceration around the open wound. The wound tracks down about 1.5 cm towards the inferior aspect of the wound. LABORATORY DATA: White count was 13.6 yesterday, today 10.4, hemoglobin 11.5, hematocrit 34.3, platelets 303. 67% neutrophils 18% lymphocytes, 9% monocytes. Sodium 140, potassium 4.8, chloride 107, bicarbonate 21, BUN 28, creatinine 1.3, glucose 129, calcium 8.4. AST 32, ALT 20, alkaline phosphatase 139, C-reactive protein (CRP) is pending. Total protein 5.8, albumin 2.2. Wound culture repeat was done and is pending. Wound culture that was done in my office was positive for Neisseria cinerea. IMAGING STUDIES: Hip x-ray done on 02/10/2017 showed a lucency in the acetabulum adjacent to the acetabular cup, extending in the supra-acetabulare iliac wing similar to previous study. This could be a large cyst or a lytic lesion or postsurgical change. Unchanged from prior CT done on 04/24/2008. IMPRESSION: This is a 76-year-old gentleman who has been fairly stable with his chronic prosthetic joint infection on chronic suppressive therapy with Keflex 500 mg twice a day. Over the past week has developed an elevated white count, C-reactive protein (CRP), sedimentation rate of 124. Excruciating pain, inability to sleep in three nights, and therefore was admitted for pain management and IV antibiotics. Clinically, the drainage is about the same. The wound culture was only positive for Neisseria, which is not a typical pathogen and therefore a repeat culture will be done. The patient has been started on IV vancomycin and Rocephin for broad-spectrum, as he is a previous history of methicillin-resistant Staphylococcus aureus (MRSA). PLAN 1. Continue IV vancomycin and Rocephin at current doses. 2. Monitor C-reactive protein (CRP) and erythrocyte sedimentation rate every couple days. 3. Pain management. Consider consult with Dr. Ross next week when he comes back for better dressing changes. 4. I have discussed the case with the nurse partnership marketing manager on [address] and we have agreed to place Aquacel Maxorb dressing and Optifoam. This is no surgical intervention which would help with this chronic infection. At this point, the patient is a poor surgical candidate. He has a muscular disease. Dr. Gibson is following the patient.
[2017-02-28] MEDS: LEVEMIR (INSULIN DETEMIR) 1 UNITS/0.01ML SC SCH (20:19)
[2017-02-28] MEDS: SIMVASTATIN 10 MG TAB PO SCH (20:19)
[2017-02-28] MEDS: **NOTE PATIENT COMMENT** MISC XX SCH (21:33)
[2017-02-28 22:00] VITALS: BP 125/59
[2017-03-01 06:00] VITALS: BP 124/68
[2017-03-01 06:58] LABS: CALCIUM LEVEL 8.9 MG/DL (8.8-10.2); CREATININE FOR GFR 1.47 MG/DL (0.70-1.30); GLOMERULAR FILTRATION RATE 49.6 (>42); POTASSIUM SERUM 4.7 MEQ/L (3.5-5.1)
--- NOTE | 2017-03-01 07:48 | IPN ---
DATE: 03/01/2017 Mr. Mckeon was seen while rounding for the hospitalist. He was admitted with a recurrence of a chronically infected right hip. Both drainage and pain have been reduced on his current regimen. The hyperkalemia that he had yesterday has resolved. Suspect that it was lab error. He is on Rocephin and vancomycin. He seems to be responding to this. He has not had any hypoglycemia on his current dose of basal insulin. PHYSICAL EXAMINATION: VITAL SIGNS: Stable. Afebrile. LUNGS: Clear. HEART: Regular rhythm. ABDOMEN: Soft, nontender. EXTREMITIES: No peripheral edema. His wound was dressed. I did not examine it. LABORATORIES: Look stable from yesterday. Potassium is down to 4.7, creatinine is 1.47. White count is 11.6. IMPRESSION: 1. Chronically infected, recurrently open right hip wound. He was seen by infectious disease. On IV vancomycin and Rocephin and responding to this. I ordered a C-reactive protein for tomorrow. There has been some discussion about Dr. Ross seeing the patient, but Dr. Dillon's note from yesterday indicated that this was an outpatient plan. 2. Hyperkalemia, resolved, probably lab error. 3. Diabetes. Well controlled on his current regimen. No hypoglycemia. 4. Hypertension. Good control on current regimen. The rest of his medical problems are stable and they were outlined in Dr. Dillon's 02/28/2017 note.
[2017-03-01] MEDS: GABAPENTIN 300 MG CAP PO SCH ×2 (08:13→20:15)
[2017-03-01] MEDS: NYSTATIN 100,000 UNITS/GM TOPICAL PWD 15 GM TOP SCH ×2 (08:13→20:17)
[2017-03-01] MEDS: ATENOLOL 25 MG TAB PO SCH ×2 (08:14→20:16)
[2017-03-01] MEDS: ASPIRIN 81 MG ENTERIC TAB PO SCH (08:14)
[2017-03-01] MEDS: DIGOXIN 0.125 MG TAB PO SCH (08:14)
[2017-03-01] MEDS: DOCUSATE SODIUM 100 MG CAP PO SCH ×2 (08:14→20:15)
[2017-03-01] MEDS: MIRALAX *UNIT DOSE* 17GM PACKET PO SCH ×2 (08:15→20:15)
[2017-03-01] MEDS: FUROSEMIDE 40 MG TAB PO SCH (08:15)
[2017-03-01] MEDS: ENOXAPARIN 30 MG/0.3 ML SYR (J1650) SC SCH (08:15)
[2017-03-01] MEDS: LIDOCAINE 5% (LIDODERM) PATCH TD SCH (08:16)
[2017-03-01] MEDS: HumaLOG INSULIN (NovoLOG) PER UNIT SC SCH ×3 (08:17→18:19)
[2017-03-01] MEDS: SERTRALINE 100 MG TAB PO SCH (08:23)
[2017-03-01] MEDS: PERCOCET 5MG/325MG TAB PO PRN (12:39)
[2017-03-01] MEDS: LEVEMIR (INSULIN DETEMIR) 1 UNITS/0.01ML SC SCH (20:16)
[2017-03-01] MEDS: SIMVASTATIN 10 MG TAB PO SCH (20:16)
[2017-03-01] MEDS: DOXYCYCLINE HYCLATE 100 MG TAB PO SCH (20:16)
[2017-03-01] MEDS: **NOTE PATIENT COMMENT** MISC XX SCH (20:17)
[2017-03-01 22:00] VITALS: BP 142/66
[2017-03-02 06:00] VITALS: BP 119/60
[2017-03-02] MEDS: HumaLOG INSULIN (NovoLOG) PER UNIT SC SCH ×3 (07:30→17:36)
[2017-03-02 07:57] LABS: CALCIUM LEVEL 8.5 MG/DL (8.8-10.2); CREATININE FOR GFR 1.39 MG/DL (0.70-1.30); GLOMERULAR FILTRATION RATE 52.9 (>42); POTASSIUM SERUM 4.8 MEQ/L (3.5-5.1)
[2017-03-02] MEDS: MIRALAX *UNIT DOSE* 17GM PACKET PO SCH ×2 (09:00→21:00)
[2017-03-02] MEDS: NYSTATIN 100,000 UNITS/GM TOPICAL PWD 15 GM TOP SCH ×2 (09:00→21:00)
[2017-03-02] MEDS: LIDOCAINE 5% (LIDODERM) PATCH TD SCH (10:43)
[2017-03-02] MEDS: ASPIRIN 81 MG ENTERIC TAB PO SCH (10:43)
[2017-03-02] MEDS: DOCUSATE SODIUM 100 MG CAP PO SCH ×2 (10:43→21:22)
[2017-03-02] MEDS: FUROSEMIDE 40 MG TAB PO SCH (10:44)
[2017-03-02] MEDS: GABAPENTIN 300 MG CAP PO SCH ×2 (10:44→21:22)
[2017-03-02] MEDS: ATENOLOL 25 MG TAB PO SCH ×2 (10:44→21:22)
[2017-03-02] MEDS: SERTRALINE 100 MG TAB PO SCH (10:45)
[2017-03-02] MEDS: DIGOXIN 0.125 MG TAB PO SCH (10:45)
[2017-03-02] MEDS: DOXYCYCLINE HYCLATE 100 MG TAB PO SCH ×2 (10:45→21:22)
[2017-03-02] MEDS: ENOXAPARIN 30 MG/0.3 ML SYR (J1650) SC SCH (10:49)
--- NOTE | 2017-03-02 10:58 | IPNPDOC ---
Subjective Date Seen The patient was seen on 03/02/17. Subjective Chief Complaint/HPI The patient is a 76-year-old male admitted with a reason for visit of Wound Infection. Events since last encounter right hip pain better, no fever or chills, no nausea or vomiting or diarrhea. Objective Physical Examination General Exam: Positive: Alert, Cooperative Eye Exam: Positive: PERRLA, EOMI ENT Exam: Positive: Atraumatic Chest Exam: Positive: Clear to auscultation, Normal air movement Heart Exam: Positive: Rate Normal, Regular Rhythm, Negative: Murmurs Abdomen Exam: Positive: Normal bowel sounds, Soft, Negative: Tenderness Extremity Exam: Positive: Edema, Other ( A very large open area measuring about 20 cm over the right hip with purulent discharge with some maceration around the wound, the wound tracks down to the inner aspect of thigh.) Skin Exam: Positive: Other skin issue ( A very large open area measuring about 20 cm, with large amount of) Psych Exam: Positive: Mental status NL, Other (dysarthria noted.) Assessment /Plan Problems (1) Prosthetic joint infection Status: Acute Problem Text: Has chronic prosthetic joint infection since 1992 after right hip replacement on chronic suppressive antibiotic prophylaxis. Now acute worsening . culture grew neisseria and staph simulans was on ceftriaxone and vanco now changed to doxycycline. appreciated ID input and management. (2) Open wound of right hip Status: Chronic Problem Specific Plan: Consult Specialist (Dr. Tesfaye has been consulted and saw patient in clinic recently.) Problem Text: This wound has been present for 20+years, following right total hip. Cultured in office, growing Neisseria cinerea. Currently on Ceftriaxone and Vancomycin. Does not appear that he has had Consult with Recreational Aide as outpatient (Dr. Ross). May benefit from inpatient consult with Surgery since inpatient process control specialist (other than PT) is not available. PT process control specialist has been consulted. (3) Diabetes mellitus Status: Chronic Response to Treatment: Stable (4) Cerebellar ataxia Status: Chronic Response to Treatment: Stable Problem Specific Plan: Monitor Clinically (5) Hypertension Status: Chronic (6) A-fib Status: Chronic (7) Pacemaker Status: Chronic (8) CHF (congestive heart failure) Status: Chronic Problem Text: systolic chf last ef of 50% also has moderate pulmonary hypertension has mild fluid retension will change to iv lasix. (9) Hyperlipidemia Status: Chronic (10) Spinal stenosis Status: Chronic (11) Gout Status: Chronic Plan/VTE VTE Prophylaxis Ordered?: Yes Plan Therapy: PT, Wound Consult (PT wound consult.) Anticipated Discharge: Home VS, I&O, 24H, Fishbone Vital Signs/I&O Vital Signs Date Time Temp Pulse Resp B/P (MAP) Pulse Ox O2 Delivery O2 Flow Rate FiO2 03/02/17 06:00 97.2 60 14 119/60 (79) 99 Room Air I&O- Last 24 Hours up to 6 AM 03/02/17 06:00 Intake Total 180 ml Output Total 275 ml Balance -95 ml Laboratory Data 24H LABS Laboratory Tests 2 03/01/17 12:19: Bedside Glucose (Misc Panel) 167H 03/01/17 16:49: Vancomycin Level Trough 30.2*H 03/01/17 19:53: Bedside Glucose (Misc Panel) 194H 03/02/17 07:12: Anion Gap 6L, Glomerular Filtration Rate 52.9, Blood Urea Nitrogen 30H, Creatinine 1.39H, Sodium Level 139, Potassium Level 4.8, Chloride Level 102, Carbon Dioxide Level 31, Calcium Level 8.5L, C-Reactive Protein, Quantitative 11.80H CBC/BMP Laboratory Tests 03/02/17 07:12 Calcium Level 8.5 L Microbiology Microbiology 02/26/17 Wound Culture - Final, Complete Staphylococcus Simulans TERESA SLATER MD Mar 02, 2017 10:58
[2017-03-02 14:00] VITALS: BP 138/64
--- NOTE | 2017-03-02 15:58 | IPN ---
DATE: 03/01/2017 Jarad seems to be doing fairly well. He states his pain is much better controlled. He has slept very well. The dressing was not changed yesterday and therefore, the dressing he has is from 48 hours ago and there is markedly decrease in drainage. It is not as thick and yellow. PHYSICAL EXAMINATION: Maximum temperature (T-max) was 100.4 on admission, currently he is afebrile. Temperature is 97.7, pulse 60, respirations 18, blood pressure 124/68, oxygen saturation 99% on room air. HEART: Normal S1, S2 with no murmurs. LUNGS: Clear. No wheezes, rales, or rhonchi. ABDOMEN: Soft, nontender. EXTREMITIES: +2 pitting edema bilaterally. NEUROLOGIC EXAMINATION: The patient has generalized weakness with ataxia and difficulty with speech, but is pretty independent. He got himself out of his chair into the bed. When I examined his right hip, the incision is not as macerated. There is mild purulent discharge on the dressing, minimal tenderness. It is still open at least 10 cm length and 2 cm depth. LABORATORY DATA: White count 11.6, hemoglobin 11.5, hematocrit 34.5, platelets 353. Sodium 139, potassium 4.7, chloride 102, bicarbonate 33, BUN 24, creatinine 1.47, glucose 138, calcium 8.9, hemoglobin A1c 8.7, CRP 6.32, albumin 2.5. Wound culture had Staphylococcus simulans. Previous to that, the wound culture had Neisseria cinerea. IMPRESSION: 1. 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 The patient is back to his baseline with pain and drainage. He has done well with IV vancomycin and Rocephin for the past three days. 2. Cerebellar ataxia. 3. Insulin-dependent diabetes, on Levemir. PLAN: Discontinue IV Rocephin and vancomycin, switch to doxycycline 100 mg by mouth twice a day which would cover the Staphylococcus simulans, the Neisseria, and the previous history of methicillin-resistant Staphylococcus aureus (MRSA). The patient is clinically much improved and could be discharged home tomorrow if his is willing to take him. I would continue with same dressing changes as we have in the hospital, Aquacel and Optifoam and consider followup with the wound clinic. The patient takes two Percocet a day at most.
[2017-03-02] MEDS: FUROSEMIDE 40 MG/4 ML VIAL (J1940) IV SCH (17:36)
[2017-03-02] MEDS: **NOTE PATIENT COMMENT** MISC XX SCH (21:00)
[2017-03-02] MEDS: SIMVASTATIN 10 MG TAB PO SCH (21:22)
[2017-03-02] MEDS: LEVEMIR (INSULIN DETEMIR) 1 UNITS/0.01ML SC SCH (21:22)
[2017-03-02 22:00] VITALS: BP 138/64
[2017-03-03 06:00] VITALS: BP 156/70
[2017-03-03 06:36] LABS: MEAN CORPUSCULAR HEMOGLOBIN 30.5 pg (27.0-33.0); MEAN CORPUSCULAR HGB CONC 32.6 g/dl (32.0-36.5); MEAN CORPUSCULAR VOLUME 93.7 fl (80.0-96.0); RED CELL DISTRIBUTION WIDTH 13.8 % (11.5-14.5); WHITE BLOOD COUNT 16.7 K/mm3 (4.0-10.0)
[2017-03-03 08:49] LABS: CREATININE FOR GFR 1.75 MG/DL (0.70-1.30); GLOMERULAR FILTRATION RATE 40.5 (>42)
[2017-03-03] MEDS ORDERED: SOD POLYSTYRENE SULFONATE SUSP 15 GM/60 ML UD PO ONE (09:15)
[2017-03-03] MEDS ORDERED: ALBUTEROL SULFATE 2.5 MG/0.5 ML INH NEB SOLN NEB ONE (09:15)
[2017-03-03] MEDS: ASPIRIN 81 MG ENTERIC TAB PO SCH (09:20)
[2017-03-03] MEDS: DOCUSATE SODIUM 100 MG CAP PO SCH ×2 (09:20→20:08)
[2017-03-03] MEDS: GABAPENTIN 300 MG CAP PO SCH ×2 (09:20→20:07)
[2017-03-03] MEDS: SERTRALINE 100 MG TAB PO SCH (09:20)
[2017-03-03] MEDS: ATENOLOL 25 MG TAB PO SCH ×2 (09:20→20:08)
[2017-03-03] MEDS: DOXYCYCLINE HYCLATE 100 MG TAB PO SCH ×2 (09:20→20:07)
[2017-03-03] MEDS: DIGOXIN 0.125 MG TAB PO SCH (09:20)
[2017-03-03] MEDS: HumaLOG INSULIN (NovoLOG) PER UNIT SC SCH ×3 (09:21→17:07)
[2017-03-03] MEDS: MIRALAX *UNIT DOSE* 17GM PACKET PO SCH ×2 (09:21→20:08)
[2017-03-03] MEDS: FUROSEMIDE 40 MG/4 ML VIAL (J1940) IV SCH ×2 (09:21→17:08)
[2017-03-03] MEDS: NYSTATIN 100,000 UNITS/GM TOPICAL PWD 15 GM TOP SCH ×2 (09:22→20:09)
[2017-03-03] MEDS: LIDOCAINE 5% (LIDODERM) PATCH TD SCH (09:22)
--- NOTE | 2017-03-03 11:27 | IPNPDOC ---
Subjective Date Seen The patient was seen on 03/03/17. Subjective Chief Complaint/HPI The patient is a 76-year-old male admitted with a reason for visit of Wound Infection. Events since last encounter patient does not offer any complaints today , says is moving better, pain is controlled, no fever or chills, secretions less. however there is rising wbc and rising crp after stopping iv antibiotics. Objective Physical Examination General Exam: Positive: Alert, Cooperative Eye Exam: Positive: PERRLA, EOMI ENT Exam: Positive: Atraumatic Chest Exam: Positive: Clear to auscultation, Normal air movement Heart Exam: Positive: Rate Normal, Regular Rhythm, Negative: Murmurs Abdomen Exam: Positive: Normal bowel sounds, Soft, Negative: Tenderness Extremity Exam: Positive: Edema, Other ( A very large open area measuring about 20 cm over the right hip with purulent discharge with some maceration around the wound, the wound tracks down to the inner aspect of thigh.) Skin Exam: Positive: Other skin issue ( A very large open area measuring about 20 cm, with large amount of) Psych Exam: Positive: Mental status NL, Other (dysarthria noted.) Assessment /Plan Problems (1) Hyperkalemia Status: Acute Problem Text: will give albuterol and kayexalate. (2) Prosthetic joint infection Status: Acute Problem Text: Has chronic prosthetic joint infection since 1992 after right hip replacement on chronic suppressive antibiotic prophylaxis. Now acute worsening . culture grew neisseria and staph simulans was on ceftriaxone and vanco now changed to doxycycline. appreciated ID input and management. However cbc and crp are again rising. (3) Open wound of right hip Status: Chronic Problem Specific Plan: Consult Specialist (Dr. Tesfaye has been consulted and saw patient in clinic recently.) Problem Text: This wound has been present for 20+years, following right total hip. Cultured in office, growing Neisseria cinerea. Currently on Ceftriaxone and Vancomycin. Does not appear that he has had Consult with Web Site Project Manager as outpatient (Dr. Ross). May benefit from inpatient consult with Surgery since inpatient disability benefits specialist (other than PT) is not available. PT disability benefits specialist has been consulted. (4) Diabetes mellitus Status: Chronic Response to Treatment: Stable (5) Cerebellar ataxia Status: Chronic Response to Treatment: Stable Problem Specific Plan: Monitor Clinically (6) Hypertension Status: Chronic (7) A-fib Status: Chronic (8) Pacemaker Status: Chronic (9) CHF (congestive heart failure) Status: Chronic Problem Text: systolic chf last ef of 50% also has moderate pulmonary hypertension has mild fluid retension will change to iv lasix. (10) Hyperlipidemia Status: Chronic (11) Spinal stenosis Status: Chronic (12) Gout Status: Chronic (13) CKD (chronic kidney disease), stage III Status: Chronic Problem Text: has some LYUBOV on ckd at present. will stop iv lasix. Plan/VTE VTE Prophylaxis Ordered?: Yes Plan Therapy: PT, Wound Consult (PT wound consult.) Anticipated Discharge: Home VS, I&O, 24H, Fishbone Vital Signs/I&O Vital Signs Date Time Temp Pulse Resp B/P (MAP) Pulse Ox O2 Delivery O2 Flow Rate FiO2 03/03/17 09:20 68 03/03/17 09:20 156/70 03/03/17 06:00 98.1 18 97 Room Air I&O- Last 24 Hours up to 6 AM 03/03/17 06:00 Intake Total 1320 ml Output Total 1650 ml Balance -330 ml Laboratory Data 24H LABS Laboratory Tests 2 03/02/17 11:55: Bedside Glucose (Misc Panel) 128H 03/02/17 16:46: Bedside Glucose (Misc Panel) 129H 03/02/17 21:00: Bedside Glucose (Misc Panel) 215H 03/03/17 08:09: Anion Gap 4L, Glomerular Filtration Rate 40.5L, Blood Urea Nitrogen 35H, Creatinine 1.75H, Sodium Level 137, Potassium Level 6.0H, Chloride Level 100, Carbon Dioxide Level 33H, Calcium Level 9.0, C-Reactive Protein, Quantitative 13.60H CBC/BMP Laboratory Tests 03/03/17 06:21 Red Blood Count 4.16 L, Mean Corpuscular Volume 93.7, Mean Corpuscular Hemoglobin 30.5, Mean Corpuscular Hemoglobin Concent 32.6, Red Cell Distribution Width 13.8 03/03/17 08:09 Calcium Level 9.0 Microbiology Microbiology 02/26/17 Wound Culture - Final, Complete Staphylococcus Simulans TERESA SLATER MD Mar 03, 2017 11:27
[2017-03-03] MEDS: ENOXAPARIN 30 MG/0.3 ML SYR (J1650) SC SCH (12:52)
[2017-03-03 14:00] VITALS: BP 136/66
--- NOTE | 2017-03-03 14:43 | IPN ---
DATE OF SERVICE: 03/02/2017 Mr. Mckeon seems to be doing very well. He denies any nausea, vomiting, diarrhea, or abdominal pain. Tolerating doxycycline well. His appetite is good. He only takes 1-2 pain medications during the day. He is pretty happy with that. On physical examination, heart: Normal, S1, S2. No murmurs. Lungs are clear. Abdomen: Soft, nontender. Extremities: +1 pitting edema. Right hip today was not examined, as he was sitting in the chair. Yesterday, the incision was much improved. With minimal yellowish drainage. Temperature is 97.5, pulse 60, respirations 14, blood pressure 138/64, oxygen (O2) saturation 97% on room air. LABORATORY DATA: White count is 11.6, hemoglobin 11.5, hematocrit 34.5, platelets 353, CRP went back to 11.8, BUN 30, creatinine 1.39, glucose 92, calcium 8.5. IMPRESSION: 1. Chronic prosthetic joint infection with culture positive for Staphylococcus simulans and Neisseria, in the past culture was methicillin-susceptible Staphylococcus aureus (MSSA). The patient is currently on doxycycline. Doing well with decreased pain. 2. Chronic cerebellar ataxia. The patient pretty independent. 3. History of congestive heart failure and moderate pulmonary hypertension. The patient received intravenous (IV) Lasix today for fluid retention. PLAN: Continue doxycycline 100 mg by mouth twice a day. Will keep on lifelong antibiotics. The patient could be discharged from an infectious disease standpoint. I am signing off. He can followup in my office in 2-3 weeks. UBALDO
[2017-03-03 16:33] LABS: CALCIUM LEVEL 9.1 MG/DL (8.8-10.2); CREATININE FOR GFR 1.57 MG/DL (0.70-1.30); POTASSIUM SERUM 4.4 MEQ/L (3.5-5.1)
[2017-03-03] MEDS: LEVEMIR (INSULIN DETEMIR) 1 UNITS/0.01ML SC SCH (20:07)
[2017-03-03] MEDS: SIMVASTATIN 10 MG TAB PO SCH (20:07)
[2017-03-03] MEDS: **NOTE PATIENT COMMENT** MISC XX SCH (20:08)
[2017-03-03 22:00] VITALS: BP 123/63
[2017-03-04 06:00] VITALS: BP 115/56
[2017-03-04 07:21] LABS: CALCIUM LEVEL 8.5 MG/DL (8.8-10.2); CREATININE FOR GFR 1.73 MG/DL (0.70-1.30); GLOMERULAR FILTRATION RATE 41.1 (>42)
[2017-03-04 07:22] LABS: POTASSIUM SERUM 5.2 MEQ/L (3.5-5.1)
[2017-03-04 07:31] LABS: BASO # 0.1 K/mm3 (0.0-0.2); BASO % 0.7 % (0.0-1.0); EOS # 0.2 K/mm3 (0.0-0.50); EOS % 1.1 % (0.0-3.0); LARGE UNSTAINED CELL # 0.3 K/mm3 (0.0-0.4); LARGE UNSTAINED CELL % 1.4 % (0.0-4.0); LYMPH # 2.4 K/mm3 (1.5-4.5); LYMPH % 12.6 % (24.0-44.0); MEAN CORPUSCULAR HEMOGLOBIN 30.4 pg (27.0-33.0); MEAN CORPUSCULAR HGB CONC 33.3 g/dl (32.0-36.5); MEAN CORPUSCULAR VOLUME 91.2 fl (80.0-96.0); MONO # 1.2 K/mm3 (0.0-0.8); MONO % 7.3 % (0.0-5.0); NEUTROPHILS # 13.1 K/mm3 (1.8-7.7); NEUTROPHILS % 76.9 % (36.0-66.0); PLATELET COUNT, AUTOMATED 445 k/mm3 (150-450); RED CELL DISTRIBUTION WIDTH 13.5 % (11.5-14.5)
[2017-03-04] MEDS: MIRALAX *UNIT DOSE* 17GM PACKET PO SCH (09:00)
[2017-03-04] MEDS: DOCUSATE SODIUM 100 MG CAP PO SCH (09:00)
[2017-03-04] MEDS: HumaLOG INSULIN (NovoLOG) PER UNIT SC SCH ×2 (09:00→12:29)
[2017-03-04] MEDS: FUROSEMIDE 40 MG/4 ML VIAL (J1940) IV SCH (10:22)
[2017-03-04] MEDS: ENOXAPARIN 30 MG/0.3 ML SYR (J1650) SC SCH (10:22)
[2017-03-04 10:23] VITALS: BP 115/56
[2017-03-04] MEDS: NYSTATIN 100,000 UNITS/GM TOPICAL PWD 15 GM TOP SCH (10:23)
[2017-03-04] MEDS: DOXYCYCLINE HYCLATE 100 MG TAB PO SCH (10:23)
[2017-03-04] MEDS: GABAPENTIN 300 MG CAP PO SCH (10:23)
[2017-03-04] MEDS: ASPIRIN 81 MG ENTERIC TAB PO SCH (10:23)
[2017-03-04] MEDS: LIDOCAINE 5% (LIDODERM) PATCH TD SCH (10:23)
[2017-03-04] MEDS: ATENOLOL 25 MG TAB PO SCH (10:23)
[2017-03-04] MEDS: DIGOXIN 0.125 MG TAB PO SCH (10:24)
[2017-03-04] MEDS: SERTRALINE 100 MG TAB PO SCH (10:24)
[2017-03-04] MEDS: PERCOCET 5MG/325MG TAB PO PRN (10:25)
[2017-03-04] MEDS ORDERED: DOXY100T2 PO (11:35)
--- NOTE | 2017-03-06 23:00 | DSES ---
DATE OF ADMISSION: 02/25/2017 DATE OF DISCHARGE: 03/04/2017 PRIMARY CARE PROVIDER: Nneka Holder. INFECTIOUS DISEASE CONSULT: Dr. Tesfaye. DISCHARGE DIAGNOSES: 1. Worsening of chronic prosthetic joint infection. 2. Diabetes. 3. Hypertension. 4. Cerebellar ataxia. 5. Atrial fibrillation with pacemaker in place. 6. Systolic congestive heart failure with ejection fraction (EF) of 50%. 7. Moderate pulmonary hypertension. 8. Hyperlipidemia. 9. Spinal stenosis. 10. Gout. 11. Acute kidney injury (LYUBOV) on chronic kidney disease (CKD) stage III. 12. Episodes of hyperkalemia in the hospital. DISCHARGE MEDICATIONS: - doxycycline 100 mg by mouth twice a day - aspirin 81 mg daily - atenolol 25 mg by mouth twice a day - Centrum and vitamin D one tablet by mouth daily - cyclobenzaprine 10 mg by mouth three times a day as needed for muscle spasms - digoxin 0.125 mg by mouth daily - Lasix 40 mg by mouth daily - gabapentin 300 mg by mouth twice a day - Levemir insulin 34 units at bedtime - lovastatin 10 mg at bedtime - oxycodone/acetaminophen 5/325 one tablet by mouth twice a day as needed for pain - sertraline 50 mg by mouth daily - lidocaine patch two patches transdermally daily HOSPITAL COURSE: This is a 76-year-old male with chronic prosthetic joint infection after a right hip replacement done in 1992. Has been having chronic infection since 1992, and has been on chronic suppressive therapy with cephalexin 500 mg twice a day for the past 24 years. Has been missing doctors' appointments because of cerebellar ataxia and difficulty with transportation to get to the doctor's appointment. Has not seen a physician for more than two years. He subsequently went to see Dr. Berto Gibson a week prior to admission for increasing pain and worsening discharge, difficulty in ambulation and was unable to sleep for several days. The patient was seen by Dr. Tesfaye on 02/23/2017, and a wound culture was done in the office, and his Keflex dose was increased to four times a day. Subsequently, there was no improvement in pain and he could not sleep at all, so he came to the emergency room on 02/25/2017, and was admitted for worsening of prosthetic joint infection with increased discharge, difficulty in ambulation, and severe pain. The patient's culture from the wound grew Neisseria in the office and Staphylococcus simulans in the hospital. The patient's chronic suppressive antibiotics were changed to doxycycline which he was tolerating well. However, in the hospital he had episodes of hyperkalemia with potassium as high as six. He also had mild acute renal failure on chronic kidney disease with a rise in creatinine to 1.7 from a baseline of 1.3 to 1.4. His diuretics were held, and he was put on 2 gram potassium diet. He was managed with Kayexalate with improvement in his potassium level. He did continue to have elevated white blood cell counts and also elevated C-reactive protein (CRP); however, his pain was much better controlled and he was able to sleep. He was also able to ambulate and was seen by physical therapy, and felt that he was almost at his baseline of his functional activity. On the day of discharge, the patient did not have any complaints. Vitals were stable, and he was discharged home in stable condition to followup with infectious disease in two weeks. PHYSICAL EXAMINATION: VITAL SIGNS: Temperature 97.8, pulse 61, respiratory rate 18, blood pressure 115/56, pulse oximetry 100% on room air. GENERAL: Patient awake, alert, and oriented times three, sitting up in a chair in no acute distress. HEENT: Normocephalic, atraumatic. Moist mucous membranes. Anicteric eyes. CHEST: Clear to auscultation. CARDIOVASCULAR: S1, S2. Regular. ABDOMEN: Soft, nontender. Bowel sounds present. EXTREMITIES: One to two plus edema. On the right hip there is an open wound about 20 cm long with some drainage. There was tracking of the wound towards to medial aspect. Hip x-ray done earlier in the month did not show any acute fracture. DISPOSITION: The patient is discharged home in stable condition. DISCHARGE INSTRUCTIONS: Patient to followup with infectious disease in two weeks. Patient to follow with primary care provider in 1-2 weeks. Consistent carbohydrate diet. Activity as tolerated.
== END 2017-03-04 14:54 | disposition home health service (06) | DRG 560 ==
LOC: M ED 15:35 → M ED INP 20:06 → M MS5PR 22:17
PROVIDERS: ADMIT Internal Medicine; ATTEND Internal Medicine Nephrology
DX: T84.51XA Infection and inflammatory reaction due to internal right hip prosthesis, initial encounter (principal); G11.9 Hereditary ataxia, unspecified; I50.22 Chronic systolic (congestive) heart failure; I13.0 Hypertensive heart and chronic kidney disease with heart failure and stage 1 through stage 4 chronic kidney disease, or unspecified chronic kidney disease; N17.9 Acute kidney failure, unspecified; F32.9 Major depressive disorder, single episode, unspecified; G62.9 Polyneuropathy, unspecified; E11.65 Type 2 diabetes mellitus with hyperglycemia; I25.10 Atherosclerotic heart disease of native coronary artery without angina pectoris; I25.2 Old myocardial infarction; E11.42 Type 2 diabetes mellitus with diabetic polyneuropathy; I27.2 Other secondary pulmonary hypertension; I48.2 Chronic atrial fibrillation; N18.3 Chronic kidney disease, stage 3 (moderate); M10.9 Gout, unspecified; E87.6 Hypokalemia; M48.06 Spinal stenosis, lumbar region; Z95.0 Presence of cardiac pacemaker; Z79.891 Long term (current) use of opiate analgesic; Z79.2 Long term (current) use of antibiotics; Z79.82 Long term (current) use of aspirin; Z79.4 Long term (current) use of insulin; Z79.899 Other long term (current) drug therapy; Z88.6 Allergy status to analgesic agent; Z88.8 Allergy status to other drugs, medicaments and biological substances; Z96.641 Presence of right artificial hip joint; Z87.891 Personal history of nicotine dependence

== ENCOUNTER → 2017-03-22 | Outpatient (REF) | payer MEDICARE ==
[~2017-03-22] MED LIST changes: +ASPI81TAEC PO; +CALCTAB68 PO; +CYCL10TA PO; +DOXY100T2 PO; +GABA-282 PO; +SERT-138 PO
[2017-03-22 11:42] LABS: BASO % 0.5 % (0.0-1.0); EOS # 0.3 K/mm3 (0.0-0.50); EOS % 3.5 % (0.0-3.0); LARGE UNSTAINED CELL # 0.2 K/mm3 (0.0-0.4); LARGE UNSTAINED CELL % 1.8 % (0.0-4.0); LYMPH # 1.7 K/mm3 (1.5-4.5); LYMPH % 17.9 % (24.0-44.0); MEAN CORPUSCULAR HEMOGLOBIN 29.8 pg (27.0-33.0); MEAN CORPUSCULAR HGB CONC 32.2 g/dl (32.0-36.5); MEAN CORPUSCULAR VOLUME 92.4 fl (80.0-96.0); MONO # 0.6 K/mm3 (0.0-0.8); MONO % 5.8 % (0.0-5.0); NEUTROPHILS # 6.8 K/mm3 (1.8-7.7); NEUTROPHILS % 70.5 % (36.0-66.0); PLATELET COUNT, AUTOMATED 382 k/mm3 (150-450); RED CELL DISTRIBUTION WIDTH 13.5 % (11.5-14.5); WHITE BLOOD COUNT 9.7 K/mm3 (4.0-10.0)
[2017-03-22 12:06] LABS: CALCIUM LEVEL 8.4 MG/DL (8.8-10.2); CREATININE FOR GFR 1.53 MG/DL (0.70-1.30); GLOMERULAR FILTRATION RATE 47.2 (>42); POTASSIUM SERUM 4.5 MEQ/L (3.5-5.1)
[2017-03-22 13:06] LABS: ERYTHROCYTE SEDIMENTATION RATE 96 mm/hr (0-20)
== END ==
LOC: M SFHCPLAZ 08:30
PROVIDERS: ATTEND Internal Medicine Infectious Disease
DX: M70.22 Olecranon bursitis, left elbow (principal); T84.50XA Infection and inflammatory reaction due to unspecified internal joint prosthesis, initial encounter; X58.XXXA Exposure to other specified factors, initial encounter; Y92.89 Other specified places as the place of occurrence of the external cause; Y93.89 Activity, other specified; Y99.8 Other external cause status

== ENCOUNTER → 2017-05-25 | Outpatient (REF) | payer MEDICARE ==
[2017-05-25 17:16] LABS: ALBUMIN 3.1 GM/DL (3.2-5.2); ALBUMIN/GLOBULIN RATIO 0.86 (1.00-1.93); BILIRUBIN,TOTAL 0.3 MG/DL (0.2-1.0); CALCIUM LEVEL 8.6 MG/DL (8.8-10.2); CREATININE FOR GFR 1.75 MG/DL (0.70-1.30); GLOMERULAR FILTRATION RATE 40.4 (>42); PERCENT SATURATION 16.4 % (19.7-50.0); POTASSIUM SERUM 4.6 MEQ/L (3.5-5.1); TOTAL PROTEIN 6.7 GM/DL (6.4-8.2)
[2017-05-25 17:36] LABS: BASO # 0.1 10^3/uL (0.0-0.2); BASO % 0.8 % (0.0-1.0); EOS # 0.5 10^3/uL (0.0-0.50); EOS % 4.9 % (0.0-3.0); IMMATURE GRANULOCYTE % 1.2 % (0-0); LYMPH # 2.6 10^3/uL (1.5-4.5); LYMPH % 28.1 % (24.0-44.0); MEAN CORPUSCULAR HGB CONC 30.8 g/dl (32.0-36.5); MEAN CORPUSCULAR VOLUME 94.1 fl (80.0-96.0); MONO # 0.9 10^3/uL (0.0-0.8); MONO % 10.2 % (0.0-5.0); NEUTROPHILS % 54.8 % (36.0-66.0); PLATELET COUNT, AUTOMATED 305 10^3/uL (150-450); RED CELL DISTRIBUTION WIDTH 14.7 % (11.5-14.5); WHITE BLOOD COUNT 9.2 10^3/uL (4.0-10.0)
== END ==
LOC: M SFHCCAPE 08:27
PROVIDERS: ATTEND Physician Assistant
DX: D64.9 Anemia, unspecified (principal); E11.8 Type 2 diabetes mellitus with unspecified complications

== ENCOUNTER 2017-08-15 10:55 | Inpatient (IN) | payer MEDICARE ==
[2017-08-15] MEDS: NS 1,000 ML IV ×2 (11:23→18:35)
[2017-08-15 11:24] LABS: BASO % 0.2 % (0.0-1.0); EOS % 0.3 % (0.0-3.0); HEMATOCRIT 33.7 % (42.0-52.0); HEMOGLOBIN 10.8 g/dl (14.0-18.0); IMMATURE GRANULOCYTE # 0.1 10^3/uL (0-0); IMMATURE GRANULOCYTE % 0.6 % (0-0); LYMPH # 0.7 10^3/uL (1.5-4.5); LYMPH % 7.4 % (24.0-44.0); MEAN CORPUSCULAR HEMOGLOBIN 28.9 pg (27.0-33.0); MEAN CORPUSCULAR VOLUME 90.1 fl (80.0-96.0); MONO # 0.8 10^3/uL (0.0-0.8); MONO % 8.6 % (0.0-5.0); NEUTROPHILS # 8.1 10^3/uL (1.8-7.7); NEUTROPHILS % 82.9 % (36.0-66.0); PLATELET COUNT, AUTOMATED 194 10^3/uL (150-450); RED BLOOD COUNT 3.74 10^6/uL (4.30-6.10); RED CELL DISTRIBUTION WIDTH 13.4 % (11.5-14.5); WHITE BLOOD COUNT 9.8 10^3/uL (4.0-10.0)
[2017-08-15 11:43] LABS: ALBUMIN 2.9 GM/DL (3.2-5.2); ALBUMIN/GLOBULIN RATIO 0.74 (1.00-1.93); ALKALINE PHOSPHATASE 97 U/L (45-117); ALT/SGPT 10 U/L (12-78); ANION GAP 5 MEQ/L (8-16); AST/SGOT 17 U/L (7-37); BILIRUBIN,DIRECT 0.2 MG/DL (0.0-0.2); BILIRUBIN,TOTAL 0.7 MG/DL (0.2-1.0); BLOOD UREA NITROGEN 28 MG/DL (7-18); CALCIUM LEVEL 8.1 MG/DL (8.8-10.2); CARBON DIOXIDE LEVEL 29 MEQ/L (21-32); CHLORIDE LEVEL 105 MEQ/L (98-107); CREATININE FOR GFR 1.67 MG/DL (0.70-1.30); GLOMERULAR FILTRATION RATE 42.7 (>42); GLUCOSE, FASTING 206 MG/DL (70-100); POTASSIUM SERUM 4.8 MEQ/L (3.5-5.1); SODIUM LEVEL 139 MEQ/L (136-145); TOTAL PROTEIN 6.8 GM/DL (6.4-8.2)
[2017-08-15 11:44] LABS: LACTIC ACID SEPSIS PROTOCOL 1.6 MMOL/L (0.4-2.0)
[2017-08-15 11:58] LABS: INFLUENZA A AMPLIFICATION NEGATIVE (NEGATIVE); INFLUENZA B AMPLIFICATION NEGATIVE (NEGATIVE)
[2017-08-15 12:50] LABS: KETONE, URINE AUTO RFX NEGATIVE (NEGATIVE); NITRITE, URINE AUTO RFX NEGATIVE (NEGATIVE); RBC, URINE AUTO RFX 18 /HPF (0-3); SPECIFIC GRAVITY UR AUTO RFX 1.016 (1.002-1.035); SQUAM EPITHELIAL CELL UR AURFX 0 /HPF (0-6); TRANSITIONAL EPITHELIAL AU RFX 3 /HPF
[2017-08-15 13:03] LABS: LEUKOCYTE ESTERASE UR AUTO RFX 3+ (NEGATIVE); WBC, URINE AUTO RFX TNTC /HPF (0-3)
[2017-08-15] MEDS: CEFTRIAXONE SOD 1 GM in APPROPRIATE DILUENT 1 EA IV (13:30)
[2017-08-15] MEDS ORDERED: CYCLOBENZAPRINE 10 MG TAB PO (14:15)
[2017-08-15] MEDS ORDERED: ONDANSETRON 4MG/2ML VIAL (J2405) IV (14:15)
[2017-08-15 14:22] LABS: C REACTIVE PROTEIN QUANTITATIV 8.61 MG/DL (0.00-0.30)
[2017-08-15] MEDS ORDERED: GLUCOSE 4 GM CHEW TABLET PO (14:30)
[2017-08-15] MEDS ORDERED: GLUCAGON FOR INJ 1 MG VIAL (J1610) SC (14:30)
[2017-08-15] MEDS ORDERED: DEXTROSE 50% 50 ML SYRINGE IV (14:30)
[2017-08-15 14:38] LABS: ERYTHROCYTE SEDIMENTATION RATE 71 mm/hr (0-20)
[2017-08-15 18:21] LABS: BEDSIDE GLUCOSE 118 MG/DL (83-110)
[2017-08-15] MEDS: SERTRALINE HCL 50 MG TAB PO (18:35)
[2017-08-15] MEDS: HumaLOG INSULIN (NovoLOG) PER UNIT SC ×2 (18:35→20:37)
[2017-08-15] MEDS: FUROSEMIDE 40 MG TAB PO (18:35)
[2017-08-15 20:33] LABS: BEDSIDE GLUCOSE 162 MG/DL (83-110)
[2017-08-15] MEDS: NYSTATIN 100,000 UNITS/GM TOPICAL PWD 15 GM TOP (20:35)
[2017-08-15] MEDS: HEPARIN SOD (PORCINE) 5000 UNITS/ML VIAL SQ (20:36)
[2017-08-15] MEDS: GABAPENTIN 300 MG CAP PO (20:36)
[2017-08-15] MEDS: SIMVASTATIN 10 MG TAB PO (20:36)
[2017-08-15] MEDS: ATENOLOL 25 MG TAB PO (20:37)
[2017-08-16] MEDS: CEFTRIAXONE SOD 1 GM in APPROPRIATE DILUENT 1 EA IV ×2 (00:31→12:09)
[2017-08-16] MEDS: ACETAMINOPHEN TAB 650MG DOSE (2X325MG) PO (00:38)
[2017-08-16 07:48] LABS: HEMATOCRIT 35.9 % (42.0-52.0); HEMOGLOBIN 11.4 g/dl (14.0-18.0); MEAN CORPUSCULAR HEMOGLOBIN 28.8 pg (27.0-33.0); MEAN CORPUSCULAR HGB CONC 31.8 g/dl (32.0-36.5); MEAN CORPUSCULAR VOLUME 90.7 fl (80.0-96.0); PLATELET COUNT, AUTOMATED 203 10^3/uL (150-450); RED BLOOD COUNT 3.96 10^6/uL (4.30-6.10); RED CELL DISTRIBUTION WIDTH 13.6 % (11.5-14.5); WHITE BLOOD COUNT 8.8 10^3/uL (4.0-10.0)
[2017-08-16 08:44] LABS: ANION GAP 8 MEQ/L (8-16); BLOOD UREA NITROGEN 25 MG/DL (7-18); CALCIUM LEVEL 8.1 MG/DL (8.8-10.2); CARBON DIOXIDE LEVEL 27 MEQ/L (21-32); CHLORIDE LEVEL 105 MEQ/L (98-107); CREATININE FOR GFR 1.58 MG/DL (0.70-1.30); DIGOXIN LEVEL 1.2 NG/ML (0.5-2.0); GLOMERULAR FILTRATION RATE 45.5 (>42); GLUCOSE, FASTING 137 MG/DL (70-100); MAGNESIUM LEVEL 2.1 MG/DL (1.8-2.4); SODIUM LEVEL 140 MEQ/L (136-145)
[2017-08-16] MEDS: FUROSEMIDE 40 MG TAB PO (09:01)
[2017-08-16] MEDS: SERTRALINE HCL 50 MG TAB PO (09:01)
[2017-08-16] MEDS: HumaLOG INSULIN (NovoLOG) PER UNIT SC ×4 (09:01→20:41)
[2017-08-16] MEDS: GABAPENTIN 300 MG CAP PO ×2 (09:01→20:41)
[2017-08-16] MEDS: ASPIRIN 81 MG ENTERIC TAB PO (09:01)
[2017-08-16] MEDS: HEPARIN SOD (PORCINE) 5000 UNITS/ML VIAL SQ ×2 (09:01→20:41)
[2017-08-16] MEDS: ATENOLOL 25 MG TAB PO ×2 (09:03→20:41)
[2017-08-16] MEDS: DIGOXIN 0.125 MG TAB PO (09:03)
[2017-08-16] MEDS: LIDOCAINE 5% (LIDODERM) PATCH TD (09:04)
[2017-08-16] MEDS: NYSTATIN 100,000 UNITS/GM TOPICAL PWD 15 GM TOP ×2 (09:13→20:42)
[2017-08-16 12:20] LABS: BEDSIDE GLUCOSE 264 MG/DL (83-110)
[2017-08-16 17:21] LABS: BEDSIDE GLUCOSE 130 MG/DL (83-110)
[2017-08-16 20:18] LABS: BEDSIDE GLUCOSE 180 MG/DL (83-110)
[2017-08-16] MEDS: SIMVASTATIN 10 MG TAB PO (20:41)
[2017-08-16] MEDS: **NOTE PATIENT COMMENT** MISC XX (20:42)
[2017-08-17] MEDS: CEFTRIAXONE SOD 1 GM in APPROPRIATE DILUENT 1 EA IV ×2 (00:52→12:07)
[2017-08-17 07:16] LABS: HEMATOCRIT 34.7 % (42.0-52.0); HEMOGLOBIN 11.1 g/dl (14.0-18.0); MEAN CORPUSCULAR HEMOGLOBIN 28.5 pg (27.0-33.0); MEAN CORPUSCULAR VOLUME 89.2 fl (80.0-96.0); PLATELET COUNT, AUTOMATED 184 10^3/uL (150-450); RED BLOOD COUNT 3.89 10^6/uL (4.30-6.10); RED CELL DISTRIBUTION WIDTH 13.8 % (11.5-14.5); WHITE BLOOD COUNT 8.2 10^3/uL (4.0-10.0)
[2017-08-17 08:36] LABS: ANION GAP 7 MEQ/L (8-16); BLOOD UREA NITROGEN 24 MG/DL (7-18); CARBON DIOXIDE LEVEL 27 MEQ/L (21-32); CHLORIDE LEVEL 105 MEQ/L (98-107); CREATININE FOR GFR 1.43 MG/DL (0.70-1.30); GLUCOSE, FASTING 138 MG/DL (70-100); POTASSIUM SERUM 4.7 MEQ/L (3.5-5.1); SODIUM LEVEL 139 MEQ/L (136-145)
[2017-08-17] MEDS: GABAPENTIN 300 MG CAP PO ×2 (08:47→21:24)
[2017-08-17] MEDS: ASPIRIN 81 MG ENTERIC TAB PO (08:47)
[2017-08-17] MEDS: LIDOCAINE 5% (LIDODERM) PATCH TD (08:49)
[2017-08-17] MEDS: FUROSEMIDE 40 MG TAB PO (08:49)
[2017-08-17] MEDS: DIGOXIN 0.125 MG TAB PO (08:49)
[2017-08-17] MEDS: ATENOLOL 25 MG TAB PO ×2 (08:50→21:25)
[2017-08-17] MEDS: HEPARIN SOD (PORCINE) 5000 UNITS/ML VIAL SQ ×2 (08:50→21:25)
[2017-08-17] MEDS: HumaLOG INSULIN (NovoLOG) PER UNIT SC ×4 (08:51→21:00)
[2017-08-17] MEDS: SERTRALINE HCL 50 MG TAB PO (08:54)
[2017-08-17] MEDS: NYSTATIN 100,000 UNITS/GM TOPICAL PWD 15 GM TOP ×2 (08:54→21:27)
[2017-08-17 11:57] LABS: BEDSIDE GLUCOSE 152 MG/DL (83-110)
[2017-08-17 16:46] LABS: BEDSIDE GLUCOSE 140 MG/DL (83-110)
[2017-08-17 20:35] LABS: BEDSIDE GLUCOSE 168 MG/DL (83-110)
[2017-08-17] MEDS: **NOTE PATIENT COMMENT** MISC XX (21:00)
[2017-08-17] MEDS: SIMVASTATIN 10 MG TAB PO (21:24)
[2017-08-18] MEDS: PERCOCET 5MG/325MG TAB PO (00:15)
[2017-08-18] MEDS: CEFTRIAXONE SOD 1 GM in APPROPRIATE DILUENT 1 EA IV ×2 (00:15→12:26)
[2017-08-18 06:58] LABS: HEMATOCRIT 35.7 % (42.0-52.0); HEMOGLOBIN 11.3 g/dl (14.0-18.0); MEAN CORPUSCULAR HEMOGLOBIN 28.3 pg (27.0-33.0); MEAN CORPUSCULAR HGB CONC 31.7 g/dl (32.0-36.5); MEAN CORPUSCULAR VOLUME 89.3 fl (80.0-96.0); PLATELET COUNT, AUTOMATED 213 10^3/uL (150-450); RED CELL DISTRIBUTION WIDTH 13.7 % (11.5-14.5); WHITE BLOOD COUNT 8.4 10^3/uL (4.0-10.0)
[2017-08-18 07:13] LABS: ANION GAP 6 MEQ/L (8-16); BLOOD UREA NITROGEN 25 MG/DL (7-18); C REACTIVE PROTEIN QUANTITATIV 8.68 MG/DL (0.00-0.30); CALCIUM LEVEL 8.6 MG/DL (8.8-10.2); CARBON DIOXIDE LEVEL 32 MEQ/L (21-32); CHLORIDE LEVEL 104 MEQ/L (98-107); CREATININE FOR GFR 1.46 MG/DL (0.70-1.30); GLOMERULAR FILTRATION RATE 49.8 (>42); GLUCOSE, FASTING 136 MG/DL (70-100); MAGNESIUM LEVEL 2.2 MG/DL (1.8-2.4); POTASSIUM SERUM 4.6 MEQ/L (3.5-5.1); SODIUM LEVEL 142 MEQ/L (136-145)
[2017-08-18] MEDS: HumaLOG INSULIN (NovoLOG) PER UNIT SC ×4 (08:15→21:00)
[2017-08-18] MEDS: HEPARIN SOD (PORCINE) 5000 UNITS/ML VIAL SQ ×2 (08:15→21:20)
[2017-08-18] MEDS: DIGOXIN 0.125 MG TAB PO (08:16)
[2017-08-18] MEDS: ASPIRIN 81 MG ENTERIC TAB PO (08:16)
[2017-08-18] MEDS: FUROSEMIDE 40 MG TAB PO (08:16)
[2017-08-18] MEDS: SERTRALINE HCL 50 MG TAB PO (08:17)
[2017-08-18] MEDS: LIDOCAINE 5% (LIDODERM) PATCH TD (08:17)
[2017-08-18] MEDS: ATENOLOL 25 MG TAB PO ×2 (08:17→21:21)
[2017-08-18] MEDS: GABAPENTIN 300 MG CAP PO ×2 (08:17→21:20)
[2017-08-18] MEDS: NYSTATIN 100,000 UNITS/GM TOPICAL PWD 15 GM TOP ×2 (08:18→21:21)
[2017-08-18] MEDS: LevoFLOXacin 500 MG TABLET PO (16:54)
[2017-08-18] MEDS: **NOTE PATIENT COMMENT** MISC XX (21:00)
[2017-08-18] MEDS: SIMVASTATIN 10 MG TAB PO (21:21)
[2017-08-18 21:30] LABS: BEDSIDE GLUCOSE 136 MG/DL (83-110)
[2017-08-18 21:30] LABS: BEDSIDE GLUCOSE 130 MG/DL (83-110)
[2017-08-18 21:30] LABS: BEDSIDE GLUCOSE 163 MG/DL (83-110)
[2017-08-19] MEDS: LevoFLOXacin 250 MG TABLET PO (05:19)
[2017-08-19 06:52] LABS: HEMATOCRIT 35.5 % (42.0-52.0); HEMOGLOBIN 11.3 g/dl (14.0-18.0); MEAN CORPUSCULAR HEMOGLOBIN 28.3 pg (27.0-33.0); MEAN CORPUSCULAR HGB CONC 31.8 g/dl (32.0-36.5); MEAN CORPUSCULAR VOLUME 88.8 fl (80.0-96.0); PLATELET COUNT, AUTOMATED 224 10^3/uL (150-450); RED CELL DISTRIBUTION WIDTH 13.6 % (11.5-14.5); WHITE BLOOD COUNT 10.3 10^3/uL (4.0-10.0)
[2017-08-19 07:20] LABS: ANION GAP 8 MEQ/L (8-16); BLOOD UREA NITROGEN 27 MG/DL (7-18); C REACTIVE PROTEIN QUANTITATIV 7.79 MG/DL (0.00-0.30); CALCIUM LEVEL 8.9 MG/DL (8.8-10.2); CARBON DIOXIDE LEVEL 30 MEQ/L (21-32); CHLORIDE LEVEL 101 MEQ/L (98-107); CREATININE FOR GFR 1.44 MG/DL (0.70-1.30); GLOMERULAR FILTRATION RATE 50.6 (>42); GLUCOSE, FASTING 149 MG/DL (70-100); MAGNESIUM LEVEL 2.1 MG/DL (1.8-2.4); POTASSIUM SERUM 4.8 MEQ/L (3.5-5.1); SODIUM LEVEL 139 MEQ/L (136-145)
[2017-08-19] MEDS: NYSTATIN 100,000 UNITS/GM TOPICAL PWD 15 GM TOP (08:23)
[2017-08-19] MEDS: LIDOCAINE 5% (LIDODERM) PATCH TD (08:24)
[2017-08-19] MEDS: HumaLOG INSULIN (NovoLOG) PER UNIT SC ×2 (08:24→12:10)
[2017-08-19] MEDS: ASPIRIN 81 MG ENTERIC TAB PO (08:25)
[2017-08-19] MEDS: HEPARIN SOD (PORCINE) 5000 UNITS/ML VIAL SQ (08:25)
[2017-08-19] MEDS: ATENOLOL 25 MG TAB PO (08:25)
[2017-08-19] MEDS: DIGOXIN 0.125 MG TAB PO (08:25)
[2017-08-19] MEDS: GABAPENTIN 300 MG CAP PO (08:25)
[2017-08-19] MEDS: SERTRALINE HCL 50 MG TAB PO (08:25)
[2017-08-19] MEDS: FUROSEMIDE 40 MG TAB PO (08:25)
[2017-08-21 18:14] LABS: BEDSIDE GLUCOSE 121 MG/DL (83-110)
[2017-08-21 18:14] LABS: BEDSIDE GLUCOSE 156 MG/DL (83-110)
== END 2017-08-19 13:05 | disposition home health service (06) | DRG 690 ==
LOC: M MS5PR 08-17 20:36 → M ED 10:55 → M ED INP 14:05 → M MS4PR 16:55
DX: N39.0 Urinary tract infection, site not specified (principal); I13.0 Hypertensive heart and chronic kidney disease with heart failure and stage 1 through stage 4 chronic kidney disease, or unspecified chronic kidney disease; G11.9 Hereditary ataxia, unspecified; M48.00 Spinal stenosis, site unspecified; E11.22 Type 2 diabetes mellitus with diabetic chronic kidney disease; I50.9 Heart failure, unspecified; N18.3 Chronic kidney disease, stage 3 (moderate); T81.31XD Disruption of external operation (surgical) wound, not elsewhere classified, subsequent encounter; I48.91 Unspecified atrial fibrillation; E78.5 Hyperlipidemia, unspecified; Z87.891 Personal history of nicotine dependence; Z95.810 Presence of automatic (implantable) cardiac defibrillator; Z79.4 Long term (current) use of insulin; Z79.82 Long term (current) use of aspirin; Z79.891 Long term (current) use of opiate analgesic; Z79.899 Other long term (current) drug therapy; Y83.8 Other surgical procedures as the cause of abnormal reaction of the patient, or of later complication, without mention of misadventure at the time of the procedure

== ENCOUNTER → 2017-09-28 | Outpatient (REF) | payer MEDICARE ==
[2017-09-28 16:25] LABS: BASO # 0.1 10^3/uL (0.0-0.2); BASO % 0.9 % (0.0-1.0); EOS # 0.5 10^3/uL (0.0-0.50); EOS % 4.7 % (0.0-3.0); HEMATOCRIT 35.5 % (42.0-52.0); IMMATURE GRANULOCYTE % 0.9 % (0-3.0); LYMPH # 2.3 10^3/uL (1.5-4.5); LYMPH % 23.5 % (24.0-44.0); MEAN CORPUSCULAR HEMOGLOBIN 28.1 pg (27.0-33.0); MEAN CORPUSCULAR VOLUME 90.6 fl (80.0-96.0); MONO # 0.9 10^3/uL (0.0-0.8); MONO % 9.7 % (0.0-5.0); NEUTROPHILS # 5.8 10^3/uL (1.8-7.7); NEUTROPHILS % 60.3 % (36.0-66.0); PLATELET COUNT, AUTOMATED 277 10^3/uL (150-450); RED BLOOD COUNT 3.92 10^6/uL (4.30-6.10); RED CELL DISTRIBUTION WIDTH 14.7 % (11.5-14.5); WHITE BLOOD COUNT 9.6 10^3/uL (4.0-10.0)
[2017-09-28 16:38] LABS: ESTIMATED AVERAGE GLUCOSE 174 MG/DL (60-110); HEMOGLOBIN A1c 7.7 %
[2017-09-28 16:44] LABS: ALBUMIN 3.1 GM/DL (3.2-5.2); ALBUMIN/GLOBULIN RATIO 0.78 (1.00-1.93); ALKALINE PHOSPHATASE 118 U/L (45-117); ALT/SGPT 12 U/L (12-78); ANION GAP 6 MEQ/L (8-16); AST/SGOT 20 U/L (7-37); BILIRUBIN,TOTAL 0.5 MG/DL (0.2-1.0); BLOOD UREA NITROGEN 27 MG/DL (7-18); CALCIUM LEVEL 8.1 MG/DL (8.8-10.2); CARBON DIOXIDE LEVEL 31 MEQ/L (21-32); CHLORIDE LEVEL 104 MEQ/L (98-107); CHOLESTEROL LEVEL 96 MG/DL (<200); CHOLESTEROL RISK RATIO 3.096 (<5); CREATININE FOR GFR 1.39 MG/DL (0.70-1.30); FREE T4 1.05 NG/DL (0.76-1.46); GLOMERULAR FILTRATION RATE 52.7 (>42); GLUCOSE, FASTING 137 MG/DL (70-100); HDL CHOLESTEROL 31 MG/DL (>40); LDL CHOLESTEROL 45.2 MG/DL (<100); NON-HDL-C 65 MG/DL; POTASSIUM SERUM 4.3 MEQ/L (3.5-5.1); SODIUM LEVEL 141 MEQ/L (136-145); TOTAL PROTEIN 7.1 GM/DL (6.4-8.2); TRIGLYCERIDES LEVEL 99 MG/DL (<150)
== END ==
LOC: M SFHCCAPE 08:30
DX: D50.9 Iron deficiency anemia, unspecified (principal); I10 Essential (primary) hypertension; E11.8 Type 2 diabetes mellitus with unspecified complications
CPT/HCPCS: 84443

== ENCOUNTER → 2017-10-29 | Outpatient (REF) | payer MEDICARE | LOC: M LAB REF 16:42 | DX: L97.113 Non-pressure chronic ulcer of right thigh with necrosis of muscle (principal) | CPT/HCPCS: 87186 ==

== ENCOUNTER 2017-11-03 14:05 | Inpatient (IN) | payer MEDICARE ==
[2017-11-03 13:38] LABS: HEMATOCRIT 37.3 % (42.0-52.0); HEMOGLOBIN 11.7 g/dl (13.5-17.5); MEAN CORPUSCULAR HEMOGLOBIN 27.5 pg (27.0-33.0); MEAN CORPUSCULAR HGB CONC 31.4 g/dl (32.0-36.5); MEAN CORPUSCULAR VOLUME 87.8 fl (80.0-96.0); PLATELET COUNT, AUTOMATED 348 10^3/uL (150-450); RED BLOOD COUNT 4.25 10^6/uL (4.30-6.10); RED CELL DISTRIBUTION WIDTH 13.9 % (11.5-14.5); WHITE BLOOD COUNT 13.3 10^3/uL (4.0-10.0)
[2017-11-03] MEDS: ACETAMINOPHEN TAB 650MG DOSE (2X325MG) PO (13:46)
[2017-11-03 14:01] LABS: ANION GAP 5 MEQ/L (8-16); BLOOD UREA NITROGEN 36 MG/DL (7-18); C REACTIVE PROTEIN QUANTITATIV 9.53 MG/DL (0.00-0.30); CALCIUM LEVEL 8.2 MG/DL (8.8-10.2); CARBON DIOXIDE LEVEL 32 MEQ/L (21-32); CHLORIDE LEVEL 102 MEQ/L (98-107); CREATININE FOR GFR 1.63 MG/DL (0.70-1.30); GLOMERULAR FILTRATION RATE 43.9 (>42); GLUCOSE, FASTING 139 MG/DL (70-100); POTASSIUM SERUM 4.6 MEQ/L (3.5-5.1); SODIUM LEVEL 139 MEQ/L (136-145)
[2017-11-03 14:05] LABS: LACTIC ACID SEPSIS PROTOCOL 1.8 MMOL/L (0.4-2.0)
[2017-11-03 14:15] LABS: ERYTHROCYTE SEDIMENTATION RATE 81 mm/hr (0-20)
[2017-11-03] MEDS: cefTRIAXone SOD 2 GM in D5W MINI-BAG PLUS 50 ML IV (15:20)
[2017-11-03] MEDS: VANCOMYCIN HCL 1,000 MG, VIAL MATE ADAPTER 1 EACH in D5W 250 ML IV (15:50)
[2017-11-03] MEDS ORDERED: GLUCAGON FOR INJ 1 MG VIAL (J1610) SC (18:15)
[2017-11-03] MEDS ORDERED: CYCLOBENZAPRINE 10 MG TAB PO (18:15)
[2017-11-03] MEDS ORDERED: DEXTROSE 50% 50 ML SYRINGE IV (18:15)
[2017-11-03] MEDS ORDERED: GLUCOSE 4 GM CHEW TABLET PO (18:15)
[2017-11-03] MEDS: NS 1,000 ML IV (22:00)
[2017-11-03 22:50] LABS: BEDSIDE GLUCOSE 143 MG/DL (83-110)
[2017-11-04] MEDS: **NOTE PATIENT COMMENT** MISC XX ×2 (01:03→21:00)
[2017-11-04] MEDS: HumaLOG INSULIN (NovoLOG) PER UNIT SC ×5 (01:06→21:00)
[2017-11-04 01:31] LABS: BEDSIDE GLUCOSE 136 MG/DL (83-110)
[2017-11-04] MEDS: HEPARIN SOD (PORCINE) 5000 UNITS/ML VIAL SC ×4 (01:31→21:28)
[2017-11-04] MEDS: SIMVASTATIN 10 MG TAB PO ×2 (01:32→21:29)
[2017-11-04] MEDS: GABAPENTIN 300 MG CAP PO ×4 (01:32→21:29)
[2017-11-04] MEDS: ATENOLOL 25 MG TAB PO ×3 (01:32→21:29)
[2017-11-04] MEDS: LEVEMIR (INSULIN DETEMIR) 1 UNITS/0.01ML SC ×2 (01:33→21:29)
[2017-11-04] MEDS: NS 1,000 ML IV (04:09)
[2017-11-04 06:19] LABS: BASO # 0.1 10^3/uL (0.0-0.2); BASO % 0.5 % (0.0-1.0); EOS # 0.4 10^3/uL (0.0-0.50); EOS % 3.9 % (0.0-3.0); HEMATOCRIT 31.6 % (42.0-52.0); IMMATURE GRANULOCYTE % 0.8 % (0-3.0); LYMPH # 1.9 10^3/uL (1.5-4.5); LYMPH % 20.6 % (24.0-44.0); MEAN CORPUSCULAR HEMOGLOBIN 27.8 pg (27.0-33.0); MEAN CORPUSCULAR HGB CONC 31.6 g/dl (32.0-36.5); MEAN CORPUSCULAR VOLUME 87.8 fl (80.0-96.0); MONO # 0.8 10^3/uL (0.0-0.8); MONO % 8.1 % (0.0-5.0); NEUTROPHILS # 6.1 10^3/uL (1.8-7.7); NEUTROPHILS % 66.1 % (36.0-66.0); PLATELET COUNT, AUTOMATED 276 10^3/uL (150-450); RED CELL DISTRIBUTION WIDTH 13.9 % (11.5-14.5); WHITE BLOOD COUNT 9.3 10^3/uL (4.0-10.0)
[2017-11-04 06:44] LABS: ANION GAP 5 MEQ/L (8-16); BLOOD UREA NITROGEN 38 MG/DL (7-18); CALCIUM LEVEL 8.3 MG/DL (8.8-10.2); CARBON DIOXIDE LEVEL 27 MEQ/L (21-32); CHLORIDE LEVEL 108 MEQ/L (98-107); CREATININE FOR GFR 1.62 MG/DL (0.70-1.30); GLOMERULAR FILTRATION RATE 44.2 (>42); GLUCOSE, FASTING 90 MG/DL (70-100); POTASSIUM SERUM 4.3 MEQ/L (3.5-5.1); SODIUM LEVEL 140 MEQ/L (136-145)
[2017-11-04] MEDS: LIDOCAINE 5% (LIDODERM) PATCH TD ×2 (09:29→09:30)
[2017-11-04] MEDS: SERTRALINE 100 MG TAB PO (09:30)
[2017-11-04] MEDS: ASPIRIN 81 MG ENTERIC TAB PO (09:30)
[2017-11-04] MEDS: CALCIUM/VITAMIN D 500 MG TAB PO (09:30)
[2017-11-04] MEDS: DIGOXIN 0.125 MG TAB PO (09:36)
[2017-11-04] MEDS: LISINOPRIL 5 MG TAB PO (09:36)
[2017-11-04 11:54] LABS: BEDSIDE GLUCOSE 109 MG/DL (83-110)
[2017-11-04] MEDS ORDERED: LIDOCAINE 1% MDV 20ML VIAL As Ordered (15:49)
[2017-11-04 17:15] LABS: BEDSIDE GLUCOSE 161 MG/DL (83-110)
[2017-11-04] MEDS: PERCOCET 5MG/325MG TAB PO (17:15)
[2017-11-04 21:42] LABS: BEDSIDE GLUCOSE 97 MG/DL (83-110)
[2017-11-05 06:06] LABS: BASO % 0.5 % (0.0-1.0); EOS # 0.3 10^3/uL (0.0-0.50); EOS % 3.8 % (0.0-3.0); HEMATOCRIT 31.3 % (42.0-52.0); HEMOGLOBIN 9.7 g/dl (13.5-17.5); IMMATURE GRANULOCYTE % 1.1 % (0-3.0); LYMPH # 1.7 10^3/uL (1.5-4.5); LYMPH % 20.1 % (24.0-44.0); MEAN CORPUSCULAR HEMOGLOBIN 27.4 pg (27.0-33.0); MEAN CORPUSCULAR VOLUME 88.4 fl (80.0-96.0); MONO # 0.9 10^3/uL (0.0-0.8); MONO % 10.5 % (0.0-5.0); NEUTROPHILS # 5.3 10^3/uL (1.8-7.7); PLATELET COUNT, AUTOMATED 266 10^3/uL (150-450); RED BLOOD COUNT 3.54 10^6/uL (4.30-6.10); RED CELL DISTRIBUTION WIDTH 14.1 % (11.5-14.5); WHITE BLOOD COUNT 8.2 10^3/uL (4.0-10.0)
[2017-11-05] MEDS: HEPARIN SOD (PORCINE) 5000 UNITS/ML VIAL SC ×3 (06:08→22:04)
[2017-11-05 06:32] LABS: ANION GAP 7 MEQ/L (8-16); BLOOD UREA NITROGEN 32 MG/DL (7-18); C REACTIVE PROTEIN QUANTITATIV 7.67 MG/DL (0.00-0.30); CALCIUM LEVEL 8.2 MG/DL (8.8-10.2); CARBON DIOXIDE LEVEL 27 MEQ/L (21-32); CHLORIDE LEVEL 110 MEQ/L (98-107); CREATININE FOR GFR 1.48 MG/DL (0.70-1.30); GLOMERULAR FILTRATION RATE 49.1 (>42); GLUCOSE, FASTING 53 MG/DL (70-100); SODIUM LEVEL 144 MEQ/L (136-145)
[2017-11-05] MEDS: HumaLOG INSULIN (NovoLOG) PER UNIT SC ×4 (07:23→21:00)
[2017-11-05 07:31] LABS: FERRITIN 63 NG/ML (26-388); IRON (FE) 31 UG/DL (65-175); PERCENT SATURATION 10.4 % (19.7-50.0); TOTAL IRON BINDING CAPACITY 297 UG/DL (250-450)
[2017-11-05 08:10] LABS: BEDSIDE GLUCOSE 53 MG/DL (83-110)
[2017-11-05] MEDS: ATENOLOL 25 MG TAB PO ×2 (08:44→22:03)
[2017-11-05] MEDS: LISINOPRIL 5 MG TAB PO (08:45)
[2017-11-05] MEDS: DIGOXIN 0.125 MG TAB PO (08:45)
[2017-11-05] MEDS: GABAPENTIN 300 MG CAP PO ×3 (08:45→22:03)
[2017-11-05] MEDS: SERTRALINE HCL 50 MG TAB PO (08:45)
[2017-11-05] MEDS: CALCIUM/VITAMIN D 500 MG TAB PO (08:45)
[2017-11-05] MEDS: PERCOCET 5MG/325MG TAB PO ×2 (08:45→17:45)
[2017-11-05] MEDS: ASPIRIN 81 MG ENTERIC TAB PO (08:45)
[2017-11-05] MEDS: LIDOCAINE 5% (LIDODERM) PATCH TD ×2 (08:46)
[2017-11-05 09:17] LABS: BEDSIDE GLUCOSE 66 MG/DL (83-110)
[2017-11-05 10:08] LABS: BEDSIDE GLUCOSE 107 MG/DL (83-110)
[2017-11-05 11:45] LABS: BEDSIDE GLUCOSE 144 MG/DL (83-110)
[2017-11-05 17:39] LABS: BEDSIDE GLUCOSE 101 MG/DL (83-110)
[2017-11-05] MEDS: **NOTE PATIENT COMMENT** MISC XX (21:00)
[2017-11-05 21:12] LABS: BEDSIDE GLUCOSE 119 MG/DL (83-110)
[2017-11-05] MEDS ORDERED: HEPARIN SOD (PORCINE) 5000 UNITS/ML VIAL As Ordered (21:57)
[2017-11-05] MEDS: LEVEMIR (INSULIN DETEMIR) 1 UNITS/0.01ML SC (22:03)
[2017-11-05] MEDS: SIMVASTATIN 10 MG TAB PO (22:03)
[2017-11-06] MEDS: HEPARIN SOD (PORCINE) 5000 UNITS/ML VIAL SC ×3 (05:39→20:59)
[2017-11-06 06:14] LABS: BASO # 0.1 10^3/uL (0.0-0.2); BASO % 0.6 % (0.0-1.0); EOS # 0.5 10^3/uL (0.0-0.50); EOS % 5.3 % (0.0-3.0); HEMOGLOBIN 10.4 g/dl (13.5-17.5); IMMATURE GRANULOCYTE % 0.6 % (0-3.0); LYMPH # 2.2 10^3/uL (1.5-4.5); LYMPH % 25.8 % (24.0-44.0); MEAN CORPUSCULAR HEMOGLOBIN 27.2 pg (27.0-33.0); MEAN CORPUSCULAR HGB CONC 30.6 g/dl (32.0-36.5); MONO # 0.8 10^3/uL (0.0-0.8); MONO % 9.3 % (0.0-5.0); NEUTROPHILS % 58.4 % (36.0-66.0); PLATELET COUNT, AUTOMATED 295 10^3/uL (150-450); RED BLOOD COUNT 3.82 10^6/uL (4.30-6.10); RED CELL DISTRIBUTION WIDTH 14.1 % (11.5-14.5); WHITE BLOOD COUNT 8.5 10^3/uL (4.0-10.0)
[2017-11-06 06:30] LABS: ANION GAP 3 MEQ/L (8-16); BLOOD UREA NITROGEN 30 MG/DL (7-18); C REACTIVE PROTEIN QUANTITATIV 6.45 MG/DL (0.00-0.30); CALCIUM LEVEL 8.5 MG/DL (8.8-10.2); CARBON DIOXIDE LEVEL 31 MEQ/L (21-32); CHLORIDE LEVEL 111 MEQ/L (98-107); CREATININE FOR GFR 1.37 MG/DL (0.70-1.30); GLOMERULAR FILTRATION RATE 53.6 (>42); GLUCOSE, FASTING 88 MG/DL (70-100); SODIUM LEVEL 145 MEQ/L (136-145)
[2017-11-06] MEDS: HumaLOG INSULIN (NovoLOG) PER UNIT SC ×4 (07:19→19:59)
[2017-11-06 08:06] LABS: TRANSFERRIN 212 mg/dL (200-370)
[2017-11-06] MEDS: LEVEMIR (INSULIN DETEMIR) 1 UNITS/0.01ML SC ×2 (09:15→20:58)
[2017-11-06] MEDS: LIDOCAINE 5% (LIDODERM) PATCH TD ×2 (09:16)
[2017-11-06] MEDS: ASPIRIN 81 MG ENTERIC TAB PO (09:16)
[2017-11-06] MEDS: GABAPENTIN 300 MG CAP PO ×3 (09:17→20:58)
[2017-11-06] MEDS: CALCIUM/VITAMIN D 500 MG TAB PO (09:17)
[2017-11-06] MEDS: LISINOPRIL 5 MG TAB PO (09:17)
[2017-11-06] MEDS: SERTRALINE HCL 50 MG TAB PO (09:18)
[2017-11-06] MEDS: ATENOLOL 25 MG TAB PO ×2 (09:18→20:58)
[2017-11-06] MEDS: DIGOXIN 0.125 MG TAB PO (09:19)
[2017-11-06 12:13] LABS: BEDSIDE GLUCOSE 87 MG/DL (83-110)
[2017-11-06 17:14] LABS: BEDSIDE GLUCOSE 74 MG/DL (83-110)
[2017-11-06 18:36] LABS: BEDSIDE GLUCOSE 87 MG/DL (83-110)
[2017-11-06 19:52] LABS: BEDSIDE GLUCOSE 92 MG/DL (83-110)
[2017-11-06] MEDS ORDERED: HEPARIN SOD (PORCINE) 5000 UNITS/ML VIAL As Ordered (20:43)
[2017-11-06] MEDS: SIMVASTATIN 10 MG TAB PO (20:58)
[2017-11-06] MEDS: **NOTE PATIENT COMMENT** MISC XX (20:59)
[2017-11-06] MEDS: PERCOCET 5MG/325MG TAB PO (20:59)
[2017-11-07] MEDS: HEPARIN SOD (PORCINE) 5000 UNITS/ML VIAL SC ×3 (05:54→20:32)
[2017-11-07 06:24] LABS: BASO # 0.1 10^3/uL (0.0-0.2); BASO % 0.8 % (0.0-1.0); EOS # 0.4 10^3/uL (0.0-0.50); EOS % 4.1 % (0.0-3.0); HEMATOCRIT 33.8 % (42.0-52.0); HEMOGLOBIN 10.2 g/dl (13.5-17.5); IMMATURE GRANULOCYTE % 0.6 % (0-3.0); LYMPH # 2.2 10^3/uL (1.5-4.5); LYMPH % 23.1 % (24.0-44.0); MEAN CORPUSCULAR HEMOGLOBIN 26.8 pg (27.0-33.0); MEAN CORPUSCULAR HGB CONC 30.2 g/dl (32.0-36.5); MEAN CORPUSCULAR VOLUME 88.9 fl (80.0-96.0); MONO # 0.8 10^3/uL (0.0-0.8); MONO % 8.4 % (0.0-5.0); NEUTROPHILS # 6.1 10^3/uL (1.8-7.7); PLATELET COUNT, AUTOMATED 302 10^3/uL (150-450); RED CELL DISTRIBUTION WIDTH 14.1 % (11.5-14.5); WHITE BLOOD COUNT 9.7 10^3/uL (4.0-10.0)
[2017-11-07 06:40] LABS: ANION GAP 5 MEQ/L (8-16); BLOOD UREA NITROGEN 27 MG/DL (7-18); C REACTIVE PROTEIN QUANTITATIV 7.88 MG/DL (0.00-0.30); CALCIUM LEVEL 8.5 MG/DL (8.8-10.2); CARBON DIOXIDE LEVEL 29 MEQ/L (21-32); CHLORIDE LEVEL 110 MEQ/L (98-107); GLUCOSE, FASTING 53 MG/DL (70-100); POTASSIUM SERUM 4.7 MEQ/L (3.5-5.1); SODIUM LEVEL 144 MEQ/L (136-145)
[2017-11-07] MEDS: HumaLOG INSULIN (NovoLOG) PER UNIT SC ×4 (06:54→21:00)
[2017-11-07] MEDS: LEVEMIR (INSULIN DETEMIR) 1 UNITS/0.01ML SC ×2 (09:02→20:31)
[2017-11-07] MEDS: ATENOLOL 25 MG TAB PO ×2 (09:03→20:30)
[2017-11-07 09:04] LABS: BEDSIDE GLUCOSE 121 MG/DL (83-110)
[2017-11-07] MEDS: SERTRALINE HCL 50 MG TAB PO (09:04)
[2017-11-07] MEDS: CALCIUM/VITAMIN D 500 MG TAB PO (09:04)
[2017-11-07] MEDS: ASPIRIN 81 MG ENTERIC TAB PO (09:04)
[2017-11-07] MEDS: GABAPENTIN 300 MG CAP PO ×3 (09:05→20:29)
[2017-11-07] MEDS: LISINOPRIL 5 MG TAB PO (09:05)
[2017-11-07] MEDS: DIGOXIN 0.125 MG TAB PO (09:05)
[2017-11-07] MEDS: LIDOCAINE 5% (LIDODERM) PATCH TD ×2 (09:07→09:09)
[2017-11-07] MEDS ORDERED: NAFCILLIN SOD 1 GM in D5W MINI-BAG PLUS 50 ML IV (17:45)
[2017-11-07] MEDS ORDERED: HEPARIN SOD (PORCINE) 5000 UNITS/ML VIAL As Ordered (20:16)
[2017-11-07] MEDS: PERCOCET 5MG/325MG TAB PO (20:29)
[2017-11-07] MEDS: SIMVASTATIN 10 MG TAB PO (20:30)
[2017-11-07] MEDS: **NOTE PATIENT COMMENT** MISC XX (20:33)
[2017-11-07 22:17] LABS: BEDSIDE GLUCOSE 131 MG/DL (83-110)
[2017-11-08] MEDS: HEPARIN SOD (PORCINE) 5000 UNITS/ML VIAL SC ×2 (05:28→14:00)
[2017-11-08 06:44] LABS: BASO # 0.1 10^3/uL (0.0-0.2); BASO % 0.4 % (0.0-1.0); EOS # 0.2 10^3/uL (0.0-0.50); HEMATOCRIT 34.3 % (42.0-52.0); HEMOGLOBIN 10.7 g/dl (13.5-17.5); IMMATURE GRANULOCYTE % 0.8 % (0-3.0); LYMPH # 1.8 10^3/uL (1.5-4.5); LYMPH % 15.3 % (24.0-44.0); MEAN CORPUSCULAR HEMOGLOBIN 27.2 pg (27.0-33.0); MEAN CORPUSCULAR HGB CONC 31.2 g/dl (32.0-36.5); MEAN CORPUSCULAR VOLUME 87.3 fl (80.0-96.0); MONO # 1.1 10^3/uL (0.0-0.8); MONO % 9.5 % (0.0-5.0); NEUTROPHILS # 8.3 10^3/uL (1.8-7.7); PLATELET COUNT, AUTOMATED 292 10^3/uL (150-450); RED BLOOD COUNT 3.93 10^6/uL (4.30-6.10); RED CELL DISTRIBUTION WIDTH 14.2 % (11.5-14.5); WHITE BLOOD COUNT 11.5 10^3/uL (4.0-10.0)
[2017-11-08 07:06] LABS: ANION GAP 6 MEQ/L (8-16); BLOOD UREA NITROGEN 28 MG/DL (7-18); C REACTIVE PROTEIN QUANTITATIV 9.19 MG/DL (0.00-0.30); CALCIUM LEVEL 8.6 MG/DL (8.8-10.2); CARBON DIOXIDE LEVEL 26 MEQ/L (21-32); CHLORIDE LEVEL 112 MEQ/L (98-107); GLOMERULAR FILTRATION RATE 52.3 (>42); GLUCOSE, FASTING 53 MG/DL (70-100); POTASSIUM SERUM 4.4 MEQ/L (3.5-5.1); SODIUM LEVEL 144 MEQ/L (136-145)
[2017-11-08] MEDS: HumaLOG INSULIN (NovoLOG) PER UNIT SC ×2 (07:30→12:00)
[2017-11-08] MEDS: LEVEMIR (INSULIN DETEMIR) 1 UNITS/0.01ML SC (09:04)
[2017-11-08] MEDS: ASPIRIN 81 MG ENTERIC TAB PO (09:04)
[2017-11-08] MEDS: GABAPENTIN 300 MG CAP PO (09:06)
[2017-11-08] MEDS: DIGOXIN 0.125 MG TAB PO (09:06)
[2017-11-08] MEDS: ATENOLOL 25 MG TAB PO (09:06)
[2017-11-08] MEDS: SERTRALINE HCL 50 MG TAB PO (09:06)
[2017-11-08] MEDS: PERCOCET 5MG/325MG TAB PO ×2 (09:07→14:31)
[2017-11-08] MEDS: LISINOPRIL 5 MG TAB PO (09:07)
[2017-11-08] MEDS: CALCIUM/VITAMIN D 500 MG TAB PO (09:07)
[2017-11-08] MEDS: LIDOCAINE 5% (LIDODERM) PATCH TD ×2 (09:08)
[2017-11-08 12:33] LABS: BEDSIDE GLUCOSE 124 MG/DL (83-110)
[2017-11-08] MEDS: DIAPER RELIEF PASTE (DESITIN) 60GM TOP (14:24)
[2017-11-09 08:26] LABS: BEDSIDE GLUCOSE 61 MG/DL (83-110)
[2017-11-09 08:26] LABS: BEDSIDE GLUCOSE 103 MG/DL (83-110)
[2017-11-09 08:26] LABS: BEDSIDE GLUCOSE 74 MG/DL (83-110)
== END 2017-11-08 16:05 | disposition home or self-care (01) | DRG 560 ==
LOC: M MSPAV 11-04 00:37 → M MS5PR 11-04 18:38 → M ED 14:05 → M ED INP 17:37
PROC: 0J9L30Z Drainage of Right Upper Leg Subcutaneous Tissue and Fascia with Drainage Device, Percutaneous Approach (ICD-10-PCS; principal; 2017-11-04)
DX: T84.51XA Infection and inflammatory reaction due to internal right hip prosthesis, initial encounter (principal); I50.22 Chronic systolic (congestive) heart failure; L02.415 Cutaneous abscess of right lower limb; I13.0 Hypertensive heart and chronic kidney disease with heart failure and stage 1 through stage 4 chronic kidney disease, or unspecified chronic kidney disease; M86.40 Chronic osteomyelitis with draining sinus, unspecified site; E11.40 Type 2 diabetes mellitus with diabetic neuropathy, unspecified; I48.91 Unspecified atrial fibrillation; B95.61 Methicillin susceptible Staphylococcus aureus infection as the cause of diseases classified elsewhere; N18.3 Chronic kidney disease, stage 3 (moderate); M62.838 Other muscle spasm; E78.5 Hyperlipidemia, unspecified; R26.81 Unsteadiness on feet; M54.5 Low back pain; F32.9 Major depressive disorder, single episode, unspecified; I25.10 Atherosclerotic heart disease of native coronary artery without angina pectoris; Z79.82 Long term (current) use of aspirin; Z79.4 Long term (current) use of insulin; Z91.048 Other nonmedicinal substance allergy status; Z88.6 Allergy status to analgesic agent; Z88.8 Allergy status to other drugs, medicaments and biological substances; Z95.0 Presence of cardiac pacemaker; Z87.891 Personal history of nicotine dependence; Z96.641 Presence of right artificial hip joint; Y82.9 Unspecified medical devices associated with adverse incidents

== ENCOUNTER → 2017-11-11 | Outpatient (REF) | payer MEDICARE ==
[2017-11-12 12:32] LABS: APPEARANCE, URINE CLEAR (CLEAR); BACTERIA, URINE AUTO NEGATIVE (NEGATIVE); BILIRUBIN, URINE AUTO NEGATIVE (NEGATIVE); BLOOD, URINE BLOOD 2+ (NEGATIVE); COLOR, URINE YELLOW (YELLOW); GLUCOSE, URINE (UA) AUTO NEGATIVE (NEGATIVE); KETONE, URINE AUTO NEGATIVE (NEGATIVE); LEUKOCYTE ESTERASE, URINE AUTO NEGATIVE (NEGATIVE); MUCUS, URINE SMALL (NEGATIVE); NITRITE, URINE AUTO NEGATIVE (NEGATIVE); PROTEIN, URINE AUTO 1+ mg/dL (NEGATIVE); RBC, URINE AUTO 12 /HPF (0-3); SPECIFIC GRAVITY URINE AUTO 1.012 (1.002-1.035); SQUAMOUS EPITHELIAL CELL UR AU 0 /HPF (0-6); UROBILINOGEN, URINE AUTO 0.2 mg/dL (0.0-2.0); WBC, URINE AUTO 2 /HPF (0-3)
== END ==
LOC: M SFHCCAPE 16:47
DX: R41.0 Disorientation, unspecified (principal)
CPT/HCPCS: 81001

== ENCOUNTER → 2017-11-22 | Outpatient (REF) ==
[2017-11-22 08:15] LABS: HEMATOCRIT 30.7 % (42.0-52.0); HEMOGLOBIN 9.5 g/dl (13.5-17.5); MEAN CORPUSCULAR HEMOGLOBIN 26.5 pg (27.0-33.0); MEAN CORPUSCULAR HGB CONC 30.9 g/dl (32.0-36.5); MEAN CORPUSCULAR VOLUME 85.8 fl (80.0-96.0); PLATELET COUNT, AUTOMATED 379 10^3/uL (150-450); RED BLOOD COUNT 3.58 10^6/uL (4.30-6.10); RED CELL DISTRIBUTION WIDTH 14.9 % (11.5-14.5); WHITE BLOOD COUNT 10.8 10^3/uL (4.0-10.0)
[2017-11-22 08:44] LABS: ANION GAP 7 MEQ/L (8-16); BLOOD UREA NITROGEN 38 MG/DL (7-18); CARBON DIOXIDE LEVEL 24 MEQ/L (21-32); CHLORIDE LEVEL 108 MEQ/L (98-107); CHOLESTEROL LEVEL 78 MG/DL (<200); CREATININE FOR GFR 2.42 MG/DL (0.70-1.30); GLOMERULAR FILTRATION RATE 27.8 (>42); GLUCOSE, FASTING 122 MG/DL (70-100); HDL CHOLESTEROL 25 MG/DL (>40); NON-HDL-C 53 MG/DL; POTASSIUM SERUM 4.8 MEQ/L (3.5-5.1); SODIUM LEVEL 139 MEQ/L (136-145); TRIGLYCERIDES LEVEL 105 MG/DL (<150)
[2017-11-22 09:21] LABS: ESTIMATED AVERAGE GLUCOSE 128 MG/DL (60-110); HEMOGLOBIN A1c 6.1 %
== END ==
LOC: SKLAB2 07:01
DX: I50.9 Heart failure, unspecified (principal); E11.9 Type 2 diabetes mellitus without complications

== ENCOUNTER → 2017-11-23 | Outpatient (REF) ==
[2017-11-23 08:26] LABS: ANION GAP 5 MEQ/L (8-16); BLOOD UREA NITROGEN 44 MG/DL (7-18); CALCIUM LEVEL 8.4 MG/DL (8.8-10.2); CARBON DIOXIDE LEVEL 27 MEQ/L (21-32); CHLORIDE LEVEL 107 MEQ/L (98-107); CREATININE FOR GFR 2.38 MG/DL (0.70-1.30); GLOMERULAR FILTRATION RATE 28.4 (>42); GLUCOSE, FASTING 107 MG/DL (70-100); SODIUM LEVEL 139 MEQ/L (136-145)
[2017-11-23 08:29] LABS: POTASSIUM SERUM 6.2 MEQ/L (3.5-5.1)
== END ==
LOC: SKLAB2 07:00
DX: N18.9 Chronic kidney disease, unspecified (principal)

== ENCOUNTER → 2017-11-24 | Outpatient (REF) ==
[2017-11-24 07:57] LABS: ANION GAP 6 MEQ/L (8-16); BLOOD UREA NITROGEN 43 MG/DL (7-18); CALCIUM LEVEL 8.1 MG/DL (8.8-10.2); CARBON DIOXIDE LEVEL 27 MEQ/L (21-32); CHLORIDE LEVEL 107 MEQ/L (98-107); CREATININE FOR GFR 2.33 MG/DL (0.70-1.30); GLOMERULAR FILTRATION RATE 29.1 (>42); GLUCOSE, FASTING 96 MG/DL (70-100); SODIUM LEVEL 140 MEQ/L (136-145)
[2017-11-24 08:03] LABS: POTASSIUM SERUM 5.8 MEQ/L (3.5-5.1)
== END ==
LOC: SKLAB2 07:30
DX: N18.9 Chronic kidney disease, unspecified (principal)

== ENCOUNTER → 2017-11-25 | Outpatient (REF) ==
[2017-11-25 09:04] LABS: ANION GAP 7 MEQ/L (8-16); BLOOD UREA NITROGEN 42 MG/DL (7-18); CALCIUM LEVEL 8.2 MG/DL (8.8-10.2); CARBON DIOXIDE LEVEL 24 MEQ/L (21-32); CHLORIDE LEVEL 108 MEQ/L (98-107); CREATININE FOR GFR 2.11 MG/DL (0.70-1.30); GLOMERULAR FILTRATION RATE 32.6 (>42); GLUCOSE, FASTING 105 MG/DL (70-100); SODIUM LEVEL 139 MEQ/L (136-145)
[2017-11-25 09:14] LABS: POTASSIUM SERUM 5.8 MEQ/L (3.5-5.1)
== END ==
LOC: SKLAB2 07:00
DX: Z51.81 Encounter for therapeutic drug level monitoring (principal); Z79.899 Other long term (current) drug therapy

== ENCOUNTER → 2017-11-26 | Outpatient (REF) ==
[2017-11-26 07:51] LABS: ANION GAP 7 MEQ/L (8-16); BLOOD UREA NITROGEN 42 MG/DL (7-18); CALCIUM LEVEL 8.5 MG/DL (8.8-10.2); CARBON DIOXIDE LEVEL 24 MEQ/L (21-32); CHLORIDE LEVEL 109 MEQ/L (98-107); CREATININE FOR GFR 2.21 MG/DL (0.70-1.30); GLOMERULAR FILTRATION RATE 30.9 (>42); GLUCOSE, FASTING 111 MG/DL (70-100); SODIUM LEVEL 140 MEQ/L (136-145)
[2017-11-26 07:54] LABS: POTASSIUM SERUM 5.7 MEQ/L (3.5-5.1)
== END ==
LOC: SKLAB2 08:26
DX: Z51.81 Encounter for therapeutic drug level monitoring (principal); Z79.899 Other long term (current) drug therapy

== ENCOUNTER → 2017-11-27 | Outpatient (REF) ==
[2017-11-27 08:29] LABS: ANION GAP 5 MEQ/L (8-16); BLOOD UREA NITROGEN 40 MG/DL (7-18); CALCIUM LEVEL 8.6 MG/DL (8.8-10.2); CARBON DIOXIDE LEVEL 25 MEQ/L (21-32); CHLORIDE LEVEL 109 MEQ/L (98-107); CREATININE FOR GFR 1.89 MG/DL (0.70-1.30); GLUCOSE, FASTING 119 MG/DL (70-100); SODIUM LEVEL 139 MEQ/L (136-145)
== END ==
LOC: SKLAB2 07:00
DX: N18.9 Chronic kidney disease, unspecified (principal)

== ENCOUNTER → 2017-12-01 | Outpatient (REF) ==
[2017-12-01 13:42] LABS: HEMATOCRIT 34.6 % (42.0-52.0); HEMOGLOBIN 10.8 g/dl (13.5-17.5); MEAN CORPUSCULAR HEMOGLOBIN 26.7 pg (27.0-33.0); MEAN CORPUSCULAR HGB CONC 31.2 g/dl (32.0-36.5); MEAN CORPUSCULAR VOLUME 85.6 fl (80.0-96.0); PLATELET COUNT, AUTOMATED 447 10^3/uL (150-450); RED BLOOD COUNT 4.04 10^6/uL (4.30-6.10); RED CELL DISTRIBUTION WIDTH 14.8 % (11.5-14.5); WHITE BLOOD COUNT 11.1 10^3/uL (4.0-10.0)
[2017-12-01 13:55] LABS: INR 1.24; PROTHROMBIN TIME 15.8 SECONDS (12.4-14.5)
[2017-12-01 13:56] LABS: PARTIAL THROMBOPLASTIN TIME 39.4 SECONDS (26.8-37.9)
[2017-12-01 14:07] LABS: ANION GAP 6 MEQ/L (8-16); BLOOD UREA NITROGEN 32 MG/DL (7-18); CALCIUM LEVEL 8.9 MG/DL (8.8-10.2); CARBON DIOXIDE LEVEL 26 MEQ/L (21-32); CHLORIDE LEVEL 108 MEQ/L (98-107); CREATININE FOR GFR 1.62 MG/DL (0.70-1.30); GLOMERULAR FILTRATION RATE 44.2 (>42); GLUCOSE, FASTING 111 MG/DL (70-100); SODIUM LEVEL 140 MEQ/L (136-145)
[2017-12-01 14:08] LABS: POTASSIUM SERUM 5.5 MEQ/L (3.5-5.1)
== END ==
LOC: SKLAB2 07:00
DX: N18.9 Chronic kidney disease, unspecified (principal)

== ENCOUNTER → 2017-12-02 | Outpatient (REF) | payer MEDICARE ==
[2017-12-02 08:57] LABS: HEMATOCRIT 32.5 % (42.0-52.0); HEMOGLOBIN 10.2 g/dl (13.5-17.5); MEAN CORPUSCULAR HEMOGLOBIN 26.8 pg (27.0-33.0); MEAN CORPUSCULAR HGB CONC 31.4 g/dl (32.0-36.5); MEAN CORPUSCULAR VOLUME 85.3 fl (80.0-96.0); PLATELET COUNT, AUTOMATED 437 10^3/uL (150-450); RED BLOOD COUNT 3.81 10^6/uL (4.30-6.10); RED CELL DISTRIBUTION WIDTH 14.9 % (11.5-14.5); WHITE BLOOD COUNT 11.5 10^3/uL (4.0-10.0)
[2017-12-02 09:19] LABS: ANION GAP 8 MEQ/L (8-16); BLOOD UREA NITROGEN 31 MG/DL (7-18); CALCIUM LEVEL 8.5 MG/DL (8.8-10.2); CARBON DIOXIDE LEVEL 24 MEQ/L (21-32); CHLORIDE LEVEL 107 MEQ/L (98-107); CREATININE FOR GFR 1.52 MG/DL (0.70-1.30); GLOMERULAR FILTRATION RATE 47.6 (>42); GLUCOSE, FASTING 127 MG/DL (70-100); SODIUM LEVEL 139 MEQ/L (136-145)
[2017-12-02 09:21] LABS: POTASSIUM SERUM 5.3 MEQ/L (3.5-5.1)
== END ==
LOC: SKLAB2 07:00
DX: E87.5 Hyperkalemia (principal); R31.9 Hematuria, unspecified

== ENCOUNTER → 2017-12-02 | Outpatient (REF) ==
[2017-12-02 12:42] LABS: APPEARANCE, URINE MANUAL TURBID (CLEAR); COLOR, URINE MANUAL BROWN (YELLOW)
[2017-12-02 12:43] LABS: BILIRUBIN, URINE MANUAL NEGATIVE (NEGATIVE); BLOOD URINE MANUAL POSITIVE (NEGATIVE); GLUCOSE, URINE (UA) MANUAL NEGATIVE (NEGATIVE); KETONE, URINE MANUAL NEGATIVE (NEGATIVE); LEUKOCYTE ESTERASE, URINE MAN TRACE (NEGATIVE); MICROSCOPIC INDICATED? MAN YES (NO); NITRITE, URINE MANUAL NEGATIVE (NEGATIVE); PROTEIN, URINE MANUAL 3+ mg/dL (NEGATIVE); RBC, URINE TNTC /hpf (0-3); SPECIFIC GRAVITY,URINE MANUAL 1.025 (1.002-1.035); SQUAMOUS EPITHELIAL CELL URINE NONE SEEN /hpf (SMALL AMT); UROBILINOGEN, URINE MANUAL NORMAL (NORMAL)
[2017-12-02 12:44] LABS: BACTERIA, URINE MOD AMOUNT; HYALINE CAST, URINE NONE SEEN /lpf (0-1); MICROSCOPIC EXAM PERFORMED
== END ==
LOC: SKLAB2 11:07
DX: R31.9 Hematuria, unspecified (principal)

== ENCOUNTER → 2017-12-09 | Outpatient (REF) ==
[2017-12-09 15:16] LABS: BASO # 0.1 10^3/uL (0.0-0.2); BASO % 0.5 % (0.0-1.0); EOS # 0.4 10^3/uL (0.0-0.50); EOS % 3.7 % (0.0-3.0); HEMATOCRIT 33.4 % (42.0-52.0); HEMOGLOBIN 10.4 g/dl (13.5-17.5); IMMATURE GRANULOCYTE % 0.6 % (0-3.0); LYMPH # 1.5 10^3/uL (1.5-4.5); LYMPH % 13.7 % (24.0-44.0); MEAN CORPUSCULAR HEMOGLOBIN 26.9 pg (27.0-33.0); MEAN CORPUSCULAR HGB CONC 31.1 g/dl (32.0-36.5); MEAN CORPUSCULAR VOLUME 86.5 fl (80.0-96.0); MONO % 9.2 % (0.0-5.0); NEUTROPHILS # 8.1 10^3/uL (1.8-7.7); NEUTROPHILS % 72.3 % (36.0-66.0); PLATELET COUNT, AUTOMATED 327 10^3/uL (150-450); RED BLOOD COUNT 3.86 10^6/uL (4.30-6.10); RED CELL DISTRIBUTION WIDTH 15.6 % (11.5-14.5); WHITE BLOOD COUNT 11.2 10^3/uL (4.0-10.0)
== END ==
LOC: SKLAB2 14:30
DX: M10.9 Gout, unspecified (principal)

== ENCOUNTER → 2017-12-23 | Outpatient (REF) ==
[~2017-12-23] MED LIST changes: -ALDA25TA2; -ASPI81TA85 PO; -ASPI81TAEC PO; -ATEN25TA PO; -ATEN50TA2; -CALCCHW12; -CALCIUM 600+D PO; -CALCPOW2 PO; -CALCTAB68 PO; -COUM1TAB; -CYCL10TA PO; -DIGO0.12 PO; -DIGO0.126; -DOXY100T2 PO; -FLEXERIL; -FLEXERIL PO; -FURO40TA2 PO; -GABA-282 PO; -GABA-283 PO; +ISOVUE-370 76% 100ML VIAL (Q9967) As Ordered; -KEFL500C17 PO; -LASI40TA; -LASI40TA PO; -LEVE1INJ5 SQ; -LIDO1PAD TD; -LISI10TA4 PO; -LOVA10TA; -LOVA10TA PO; -METF500T13 PO; -MULTCAP PO; -OXYC1TAB23 PO; -PEPC10CH PO; -PERC5TAB8; -PREG50CA PO; -PRIN10TA; -SERT-138 PO; -SERT50TA PO; -THERGRAN; -VITA500T; -VITAMIN B12 PO; -ZOLO50TA
== END ==
LOC: M RAD 14:26
DX: R31.9 Hematuria, unspecified (principal)

== ENCOUNTER → 2017-12-28 | Outpatient (REF) ==
[2017-12-28 08:05] LABS: ANION GAP 7 MEQ/L (8-16); BLOOD UREA NITROGEN 66 MG/DL (7-18); CALCIUM LEVEL 8.6 MG/DL (8.8-10.2); CARBON DIOXIDE LEVEL 29 MEQ/L (21-32); CHLORIDE LEVEL 106 MEQ/L (98-107); CREATININE FOR GFR 1.24 MG/DL (0.70-1.30); GLOMERULAR FILTRATION RATE > 60.0 (>42); GLUCOSE, FASTING 116 MG/DL (70-100); SODIUM LEVEL 142 MEQ/L (136-145)
[2017-12-28 08:07] LABS: POTASSIUM SERUM 5.4 MEQ/L (3.5-5.1)
== END ==
LOC: SKLAB2 09:22
DX: I10 Essential (primary) hypertension (principal)

== ENCOUNTER → 2017-12-29 | Outpatient (REF) ==
[2017-12-29 09:54] LABS: ANION GAP 11 MEQ/L (8-16); BLOOD UREA NITROGEN 67 MG/DL (7-18); CALCIUM LEVEL 8.6 MG/DL (8.8-10.2); CARBON DIOXIDE LEVEL 30 MEQ/L (21-32); CHLORIDE LEVEL 103 MEQ/L (98-107); DIGOXIN LEVEL 1.1 NG/ML (0.5-2.0); GLUCOSE, FASTING 182 MG/DL (70-100); SODIUM LEVEL 144 MEQ/L (136-145)
[2017-12-29 09:56] LABS: POTASSIUM SERUM 5.6 MEQ/L (3.5-5.1)
== END ==
LOC: SKLAB2 07:08
DX: D64.9 Anemia, unspecified (principal)

== ENCOUNTER → 2018-01-01 | Outpatient (REF) ==
[2018-01-01 10:41] LABS: ANION GAP 8 MEQ/L (8-16); BLOOD UREA NITROGEN 52 MG/DL (7-18); CALCIUM LEVEL 8.3 MG/DL (8.8-10.2); CARBON DIOXIDE LEVEL 30 MEQ/L (21-32); CHLORIDE LEVEL 103 MEQ/L (98-107); CREATININE FOR GFR 1.28 MG/DL (0.70-1.30); GLUCOSE, FASTING 167 MG/DL (70-100); POTASSIUM SERUM 4.4 MEQ/L (3.5-5.1); SODIUM LEVEL 141 MEQ/L (136-145)
== END ==
LOC: SKLAB2 07:00
DX: D64.9 Anemia, unspecified (principal)

== ENCOUNTER → 2018-01-05 | Outpatient (REF) ==
[2018-01-05 13:41] LABS: ANION GAP 6 MEQ/L (8-16); BLOOD UREA NITROGEN 43 MG/DL (7-18); CALCIUM LEVEL 8.4 MG/DL (8.8-10.2); CARBON DIOXIDE LEVEL 29 MEQ/L (21-32); CHLORIDE LEVEL 105 MEQ/L (98-107); CREATININE FOR GFR 1.24 MG/DL (0.70-1.30); GLOMERULAR FILTRATION RATE > 60.0 (>42); GLUCOSE, FASTING 122 MG/DL (70-100); SODIUM LEVEL 140 MEQ/L (136-145)
[2018-01-05 13:53] LABS: POTASSIUM SERUM 5.6 MEQ/L (3.5-5.1)
== END ==
LOC: SKLAB2 07:16
DX: D64.9 Anemia, unspecified (principal)

== ENCOUNTER → 2018-01-10 | Outpatient (REF) ==
[2018-01-10 09:06] LABS: ANION GAP 8 MEQ/L (8-16); BLOOD UREA NITROGEN 29 MG/DL (7-18); CALCIUM LEVEL 8.4 MG/DL (8.8-10.2); CARBON DIOXIDE LEVEL 28 MEQ/L (21-32); CHLORIDE LEVEL 107 MEQ/L (98-107); CREATININE FOR GFR 1.23 MG/DL (0.70-1.30); GLOMERULAR FILTRATION RATE > 60.0 (>42); GLUCOSE, FASTING 127 MG/DL (70-100); POTASSIUM SERUM 5.1 MEQ/L (3.5-5.1); SODIUM LEVEL 143 MEQ/L (136-145)
== END ==
LOC: SKLAB2 07:00
DX: D64.9 Anemia, unspecified (principal)

== ENCOUNTER → 2018-01-23 | Outpatient (REF) | payer MEDICARE, MEDICAID ==
[2018-01-23 12:32] LABS: HEMATOCRIT 28.4 % (42.0-52.0); HEMOGLOBIN 8.8 g/dl (13.5-17.5); MEAN CORPUSCULAR HEMOGLOBIN 26.3 pg (27.0-33.0); MEAN CORPUSCULAR VOLUME 84.8 fl (80.0-96.0); PLATELET COUNT, AUTOMATED 301 10^3/uL (150-450); RED BLOOD COUNT 3.35 10^6/uL (4.30-6.10); RED CELL DISTRIBUTION WIDTH 16.7 % (11.5-14.5); WHITE BLOOD COUNT 13.9 10^3/uL (4.0-10.0)
[2018-01-23 12:50] LABS: ANION GAP 6 MEQ/L (8-16); BLOOD UREA NITROGEN 30 MG/DL (7-18); CALCIUM LEVEL 8.1 MG/DL (8.8-10.2); CARBON DIOXIDE LEVEL 30 MEQ/L (21-32); CHLORIDE LEVEL 106 MEQ/L (98-107); CREATININE FOR GFR 1.26 MG/DL (0.70-1.30); GLOMERULAR FILTRATION RATE 59.1 (>42); GLUCOSE, FASTING 159 MG/DL (70-100); SODIUM LEVEL 142 MEQ/L (136-145)
[2018-01-23 12:55] LABS: POTASSIUM SERUM 5.6 MEQ/L (3.5-5.1)
== END ==
LOC: SKLAB2 11:56
DX: S71.001A Unspecified open wound, right hip, initial encounter (principal)
CPT/HCPCS: 80048

== ENCOUNTER → 2018-01-24 | Outpatient (REF) | payer MEDICARE, MEDICAID ==
[2018-01-24 09:35] LABS: HEMATOCRIT 27.3 % (42.0-52.0); HEMOGLOBIN 8.5 g/dl (13.5-17.5); MEAN CORPUSCULAR HEMOGLOBIN 26.7 pg (27.0-33.0); MEAN CORPUSCULAR HGB CONC 31.1 g/dl (32.0-36.5); MEAN CORPUSCULAR VOLUME 85.8 fl (80.0-96.0); PLATELET COUNT, AUTOMATED 343 10^3/uL (150-450); RED BLOOD COUNT 3.18 10^6/uL (4.30-6.10)
[2018-01-24 09:47] LABS: ANION GAP 7 MEQ/L (8-16); BLOOD UREA NITROGEN 31 MG/DL (7-18); CALCIUM LEVEL 8.2 MG/DL (8.8-10.2); CARBON DIOXIDE LEVEL 31 MEQ/L (21-32); CHLORIDE LEVEL 102 MEQ/L (98-107); CREATININE FOR GFR 1.53 MG/DL (0.70-1.30); GLOMERULAR FILTRATION RATE 47.2 (>42); GLUCOSE, FASTING 216 MG/DL (70-100); POTASSIUM SERUM 4.9 MEQ/L (3.5-5.1); SODIUM LEVEL 140 MEQ/L (136-145)
== END ==
LOC: SKLAB2 08:05
DX: S71.001A Unspecified open wound, right hip, initial encounter (principal)
CPT/HCPCS: 80048

== ENCOUNTER → 2018-01-25 | Outpatient (REF) ==
[2018-01-25 08:33] LABS: HEMATOCRIT 26.7 % (42.0-52.0); HEMOGLOBIN 8.4 g/dl (13.5-17.5); MEAN CORPUSCULAR HEMOGLOBIN 26.8 pg (27.0-33.0); MEAN CORPUSCULAR HGB CONC 31.5 g/dl (32.0-36.5); MEAN CORPUSCULAR VOLUME 85.3 fl (80.0-96.0); PLATELET COUNT, AUTOMATED 354 10^3/uL (150-450); RED BLOOD COUNT 3.13 10^6/uL (4.30-6.10); RED CELL DISTRIBUTION WIDTH 17.4 % (11.5-14.5)
[2018-01-25 08:54] LABS: ANION GAP 6 MEQ/L (8-16); BLOOD UREA NITROGEN 31 MG/DL (7-18); CALCIUM LEVEL 8.6 MG/DL (8.8-10.2); CARBON DIOXIDE LEVEL 31 MEQ/L (21-32); CHLORIDE LEVEL 106 MEQ/L (98-107); CREATININE FOR GFR 1.39 MG/DL (0.70-1.30); GLOMERULAR FILTRATION RATE 52.7 (>42); GLUCOSE, FASTING 117 MG/DL (70-100); SODIUM LEVEL 143 MEQ/L (136-145)
== END ==
LOC: SKLAB2 07:00
DX: Z11.9 Encounter for screening for infectious and parasitic diseases, unspecified (principal)

== ENCOUNTER → 2018-01-26 | Outpatient (REF) ==
[2018-01-26 07:48] LABS: ALBUMIN 2.2 GM/DL (3.2-5.2); ANION GAP 4 MEQ/L (8-16); BLOOD UREA NITROGEN 29 MG/DL (7-18); CALCIUM LEVEL 7.9 MG/DL (8.8-10.2); CARBON DIOXIDE LEVEL 35 MEQ/L (21-32); CHLORIDE LEVEL 103 MEQ/L (98-107); GLOMERULAR FILTRATION RATE 52.3 (>42); GLUCOSE, FASTING 109 MG/DL (70-100); PHOSPHORUS LEVEL 4.4 MG/DL (2.5-4.9); POTASSIUM SERUM 4.9 MEQ/L (3.5-5.1); SODIUM LEVEL 142 MEQ/L (136-145)
== END ==
LOC: SKLAB2 07:00
DX: E87.5 Hyperkalemia (principal); N40.0 Benign prostatic hyperplasia without lower urinary tract symptoms

== ENCOUNTER → 2018-01-27 | Outpatient (REF) | payer MEDICARE, MEDICAID | LOC: SKLAB2 08:53 | DX: E87.5 Hyperkalemia (principal); Z53.8 Procedure and treatment not carried out for other reasons ==

== ENCOUNTER 2018-02-06 15:55 | Emergency (ER) | payer MEDICARE, MEDICAID | END 2018-02-06 17:26 | disposition home or self-care (01) | LOC: M ED 15:55 | DX: T83.098A Other mechanical complication of other urinary catheter, initial encounter (principal); I10 Essential (primary) hypertension; I48.91 Unspecified atrial fibrillation; I25.10 Atherosclerotic heart disease of native coronary artery without angina pectoris; F33.9 Major depressive disorder, recurrent, unspecified; G89.29 Other chronic pain; M25.551 Pain in right hip; M86.9 Osteomyelitis, unspecified; Z79.899 Other long term (current) drug therapy; Z79.82 Long term (current) use of aspirin; Z88.8 Allergy status to other drugs, medicaments and biological substances; Z91.018 Allergy to other foods; Z91.048 Other nonmedicinal substance allergy status | CPT/HCPCS: 99282 ==